=== PATIENT | female | born 1945 | race Caucasian/White ===

== ENCOUNTER → 2017-12-29 13:56 | Outpatient (CLI) | payer OTHER, SELFPAY ==
[2017-12-29 14:53] VITALS: BMI 34.6
== END ==
PROVIDERS: PCP Physician Assistant; Visit Provider Physician Assistant
DX: E66.9 Obesity, unspecified (principal); Z68.34 Body mass index [BMI] 34.0-34.9, adult
CPT/HCPCS: 97802

== ENCOUNTER 2018-01-02 12:56 | Emergency (ER) | payer OTHER, SELFPAY ==
[2018-01-02 13:03] VITALS: BP 157/88; PULSE 77; RESP 13; TEMP 37.3; O2SAT 99
--- NOTE | 2018-01-02 13:32 | DI.CT.S_ITS ---
PROCEDURE: CT ABDOMEN PELVIS W CON INDICATIONS: Left lower quadrant pain TECHNIQUE: After the administration of intravenous contrast, 5 mm thick sections acquired from the diaphragm to the symphysis. 5 mm coronal and sagittal reformats were acquired. For radiation dose reduction, the following was used: automated exposure control, adjustment of mA and/or kV according to patient size. COMPARISON: None. FINDINGS: Image quality: Excellent. ABDOMEN: Lung bases: Lung bases are clear. Heart size is normal. Solid organs: Liver is normal in size and enhancement. Gallbladder is within normal limits. Biliary system is non dilated. Pancreas enhances normally. Spleen is normal in size and enhancement. No adrenal nodules. K 3 mm diameter nonobstructing calcification within the left superior pole kidney with overlying scarring is present. idneys demonstrate otherwise normal size and enhancement, without hydronephrosis. Peritoneum and bowel: A small hiatal hernia is present. Stomach and small bowel are grossly unremarkable. Appendix is normal. Colon is nondistended. Diverticulosis of the descending and sigmoid colon is present. There is moderate thickening of the proximal sigmoid colon, which demonstrates moderate surrounding fat stranding. No pericolonic abscess. No free fluid or air. Nodes and vessels: No retroperitoneal or mesenteric adenopathy by size criteria. Aorta and inferior vena cava are normal in size. Miscellaneous: No ventral hernias. PELVIS: Genitourinary: Bladder wall thickness is normal. Miscellaneous: No inguinal hernias or adenopathy. Bones: No suspicious bony lesions. No vertebral body compression fractures. IMPRESSION: 1. Diverticulitis of the proximal sigmoid colon. No evidence of pericolonic abscess. 2. Left superior pole renal scarring with underlying calcification. Dictated by: Anjum Akhtar M.D. on 01/02/2018 at 15:01 Approved by: Anjum Akhtar M.D. on 01/02/2018 at 15:04
[2018-01-02 14:00] LABS: Add Manual Diff / Slide Review NO; Basophils Percent Auto 0.8 % (0-2); Eosinophils Percent Auto 1.7 % (2-4); Hematocrit 40.1 % (36-46); Hemoglobin 13.9 g/dL (12.0-16.0); Lymphocytes Percent Auto 14.7 % (25-40); Mean Corpuscular HGB Conc 34.7 % (30-36); Mean Corpuscular Hemoglobin 31.4 PG (26-34); Mean Corpuscular Volume 90.5 fL (80-100); Monocytes Percent Auto 7.2 % (3-14); Neutrophils Absolute Auto 7900 /uL (3000-5900); Neutrophils Percent Auto 75.6 % (50-75); Platelet Count 210 X10^3/uL (150-400); Red Blood Cell Count 4.43 X10^6/uL (4.0-5.2); Red Cell Distribution Width 13.4 % (11.6-14.8); White Blood Cell Count 10.5 X10^3/uL (4.5-11.0)
[2018-01-02 14:11] LABS: Alanine Aminotransferase 26 IU/L (9-52); Albumin 4.4 g/dL (3.5-5.0); Albumin Globulin Ratio 1.3 (1.0-2.8); Alkaline Phosphatase 80 U/L (38-126); Aspartate Aminotransferase 29 IU/L (14-36); BUN Creatinine Ratio 16.3 (6-22); Bilirubin Total 0.5 mg/dL (0.2-1.3); Calcium 9.4 mg/dL (8.4-10.2); Estimated Glomerular Filt Rate > 60.0 mL/min (>60); Globulin 3.3 g/dL (1.7-4.1); Glucose 95 mg/dL (80-110); Lipase 130 U/L (23-300); Potassium 5.2 mmol/L (3.4-5.1); Sodium 135 mmol/L (137-145); Total Protein 7.7 g/dL (6.3-8.2)
[2018-01-02 14:16] LABS: HEMOLYSIS 72 (0-50)
--- NOTE | 2018-01-02 15:37 | ED_ITS ---
HPI - Abdominal Pain <NEGRO Carrington - Last Filed: 01/02/18 22:04> General Chief Complaint: Abdominal Pain Stated Complaint: PT STATES LT LOWER AB PAIN Time Seen by Provider: 01/02/18 13:20 History of Present Illness HPI narrative: 72year-old female here for complaint of pain into her left lower quadrant that started last night at approximately midnight. She denies having any fevers or chills. She denies any urinary symptoms such as dysuria or urinary frequency. No flank pain. No fevers no chills. Last bowel movement was earlier today and was normal. She reports no nausea or vomiting. Last meal was this morning. She denies any trauma to the area. She reports increased pain with palpation to the area. MD complaint: abdominal pain Related Data Home Medications Medication Instructions Recorded Confirmed [VITAMIN C] 1,000 mg PO QDAY #0 11/12/17 01/05/18 aspirin 81 mg PO QDAY #0 11/12/17 01/05/18 melatonin 5 mg PO HSP PRN #0 11/12/17 01/05/18 omega-3 fatty acids 1,000 mg 1,000 mg PO DAILY 01/05/18 01/05/18 capsule Previous Rx's Medication Instructions Recorded levothyroxine 88 mcg PO QDAY #90 tab 11/12/17 pravastatin 20 mg PO HS #90 tab 11/12/17 varicella-zoster gE-AS01B (PF) 0.5 ml IM X1 #1 ea 11/12/17 [Shingrix (PF)] metronidazole 500 mg PO TID #21 tab 01/02/18 oxycodone-acetaminophen [Percocet] 1 tab PO Q4-6H PRN #10 tab 01/02/18 amoxicillin 500 mg capsule 500 mg PO BID #20 cap 01/05/18 amoxicillin 875 mg-potassium 1 tab PO BID #20 tab 01/08/18 clavulanate 125 mg tablet Allergies Allergy/AdvReac Type Severity Reaction Status Date / Time hydrocodone [From VICODIN] Allergy Mild NAUSEA Unverified 01/05/18 11:34 Sulfa (Sulfonamide AdvReac Intermediate Diarrhea Unverified 01/05/18 11:34 Antibiotics) [SULFA (SULFONAMIDE ANTIBIOTICS)] ciprofloxacin AdvReac Tendon Verified 01/05/18 11:34 pain, can't walk. Review of Systems <NEGRO Carrington - Last Filed: 01/02/18 22:04> Constitutional Denies chills, Denies fever(s), Denies lethargy and Denies weakness Eyes Denies change in vision, Denies eye discharge, Denies irritation and Denies loss of vision Cardiovascular Denies chest pain, Denies irregular heart rhythm, Denies lightheadedness, Denies palpitations, Denies dyspnea, Denies dyspnea on exertion and Denies orthopnea Respiratory Denies cough, Denies dyspnea, Denies dyspnea on exertion and Denies wheezing Gastrointestinal Gastrointestinal: Reports abdominal pain Genitourinary Denies hematuria, Denies flank pain, Denies urinary incontinence and Denies urinary urgency Musculoskeletal Denies back pain, Denies muscle weakness, Denies numbness and Denies tingling Integumentary/Breasts Denies pruritus, Denies erythema, Denies rash and Denies wounds Neurologic Denies loss of vision, Denies numbness, Denies tingling and Denies weakness Endocrine Denies palpitations Allergic/Immunologic Denies wheezing Exam <NEGRO Carrington - Last Filed: 01/02/18 22:04> Initial Vital Signs Initial Vital Signs: Vital Signs Temperature 99.1 F 01/02/18 13:03 Pulse Rate 77 01/02/18 13:03 Respiratory Rate 13 01/02/18 13:03 Blood Pressure 157/88 H 01/02/18 13:03 Pulse Oximetry 99 01/02/18 13:03 Const General: cooperative and well developed Nutritional Appearance: well nourished Orientation: alert, awake, oriented x3 and not confused [facility] Mouth: oral mucosae normal and moist mucous membranes Eyes Sclera: sclerae normal Pupils: PERRL EOM: EOM intact bilaterally Resp Effort & Inspection: normal respiratory effort, able to speak in complete sentences, no respiratory distress and no use of accessory muscles Auscultation: clear to auscultation bilaterally, no rales, no rhonchi and no wheezes Cardio Rate: regular rate Rhythm: regular rhythm Heart Sounds: S1 normal, S2 normal, no gallops, no murmurs and no rubs GI Palpation: soft, guarding, No hepatomegaly, No hernia, No mass, No pulsatile mass and tender (Under to left lower quadrant) Auscultation: normal bowel sounds General: No CVA tenderness Skin General: no rashes or lesions noted, No jaundice and No petechiae <Gama López DO - Last Filed: 01/21/18 07:29> Initial Vital Signs Initial Vital Signs: Vital Signs Temperature 99.1 F 01/02/18 13:03 Pulse Rate 77 01/02/18 13:03 Respiratory Rate 13 01/02/18 13:03 Blood Pressure 157/88 H 01/02/18 13:03 Pulse Oximetry 99 01/02/18 13:03 Course <NEGRO Carrington - Last Filed: 01/02/18 22:04> Orders Ordered: Discontinued Medications Sodium Chloride (Normal Saline 0.9%) 1,000 mls @ 150 mls/hr IV CONT SHRUTI Vital Signs - 8 hr 01/02/18 16:04 01/02/18 16:09 Pulse Rate 75 75 Respiratory Rate 16 18 Blood Pressure 150/73 H Blood Pressure [Left Arm] 150/73 H Pulse Oximetry 100 98 <Gama López DO - Last Filed: 01/21/18 07:29> Orders Ordered: Discontinued Medications Sodium Chloride (Normal Saline 0.9%) 1,000 mls @ 150 mls/hr IV CONT SHRUTI Vital Signs - 8 hr 01/02/18 16:04 01/02/18 16:09 Pulse Rate 75 75 Respiratory Rate 16 18 Blood Pressure 150/73 H Blood Pressure [Left Arm] 150/73 H Pulse Oximetry 100 98 MDM - Abdominal Pain <NEGRO Carrington - Last Filed: 01/02/18 22:04> Lab Data Result diagrams: 01/02/18 13:43 01/02/18 13:43 Lab Results 01/02/18 01/02/18 Range/Units 13:43 13:43 WBC 10.5 (4.5-11.0) X10^3/uL RBC 4.43 (4.0-5.2) X10^6/uL Hgb 13.9 (12.0-16.0) g/dL Hct 40.1 (36-46) % MCV 90.5 (80-100) fL MCH 31.4 (26-34) PG MCHC 34.7 (30-36) % RDW 13.4 (11.6-14.8) % Plt Count 210 (150-400) X10^3/uL Neut % (Auto) 75.6 H (50-75) % Lymph % (Auto) 14.7 L (25-40) % [place] % (Auto) 7.2 (3-14) % Eos % (Auto) 1.7 L (2-4) % Baso % (Auto) 0.8 (0-2) % Neut # (Auto) 7900 H (0233-4746) /uL Sodium 135 L (137-145) mmol/L Potassium 5.2 H (3.4-5.1) mmol/L Chloride 100.0 (98-107) mmol/L Carbon Dioxide 24.0 (22-32) mmol/L BUN 13.0 (7-17) mg/dL Creatinine 0.80 (0.52-1.04) mg/dL Estimated GFR > 60.0 (>60) mL/min BUN/Creatinine Ratio 16.3 (6-22) Glucose 95 (80-110) mg/dL Calcium 9.4 (8.4-10.2) mg/dL Total Bilirubin 0.5 (0.2-1.3) mg/dL AST 29 (14-36) IU/L ALT 26 (9-52) IU/L Alkaline Phosphatase 80 (38-126) U/L Total Protein 7.7 (6.3-8.2) g/dL Albumin 4.4 (3.5-5.0) g/dL Globulin 3.3 (1.7-4.1) g/dL Albumin/Globulin Ratio 1.3 (1.0-2.8) Lipase 130 (23-300) U/L Imaging Data CT scan - abdomen: Radiologist's impression: PROCEDURE: CT ABDOMEN PELVIS W CON INDICATIONS: Left lower quadrant pain TECHNIQUE: After the administration of intravenous contrast, 5 mm thick sections acquired from the diaphragm to the symphysis. 5 mm coronal and sagittal reformats were acquired. For radiation dose reduction, the following was used: automated exposure control, adjustment of mA and/or kV according to patient size. COMPARISON: None. FINDINGS: Image quality: Excellent. ABDOMEN: Lung bases: Lung bases are clear. Heart size is normal. Solid organs: Liver is normal in size and enhancement. Gallbladder is within normal limits. Biliary system is non dilated. Pancreas enhances normally. Spleen is normal in size and enhancement. No adrenal nodules. K 3 mm diameter nonobstructing calcification within the left superior pole kidney with overlying scarring is present. idneys demonstrate otherwise normal size and enhancement, without hydronephrosis. Peritoneum and bowel: A small hiatal hernia is present. Stomach and small bowel are grossly unremarkable. Appendix is normal. Colon is nondistended. Diverticulosis of the descending and sigmoid colon is present. There is moderate thickening of the proximal sigmoid colon, which demonstrates moderate surrounding fat stranding. No pericolonic abscess. No free fluid or air. Nodes and vessels: No retroperitoneal or mesenteric adenopathy by size criteria. Aorta and inferior vena cava are normal in size. Miscellaneous: No ventral hernias. PELVIS: Genitourinary: Bladder wall thickness is normal. Miscellaneous: No inguinal hernias or adenopathy. Bones: No suspicious bony lesions. No vertebral body compression fractures. IMPRESSION: 1. Diverticulitis of the proximal sigmoid colon. No evidence of pericolonic abscess. 2. Left superior pole renal scarring with underlying calcification. Dictated by: Anjum Akhtar M.D. on 01/02/2018 at 15:01 Approved by: Anjum Akhtar M.D. on 01/02/2018 at 15:04 [facility] Narrative Medical decision making narrative: Cbc, Chem panel and lipase were obtained were unremarkable. CT of the abdomen shows diverticulitis of the sigmoid colon. She is placed on ciprofloxacin and metronidazole. Maljamar is prescribed for discomfort. Slowly advance diet as tolerated. Follow up with primary care provider in the next couple of days. Return emergency room for any worsening symptoms. <Gama López, DO - Last Filed: 01/21/18 07:29> Lab Data Lab Results 01/02/18 01/02/18 Range/Units 13:43 13:43 WBC 10.5 (4.5-11.0) X10^3/uL RBC 4.43 (4.0-5.2) X10^6/uL Hgb 13.9 (12.0-16.0) g/dL Hct 40.1 (36-46) % MCV 90.5 (80-100) fL MCH 31.4 (26-34) PG MCHC 34.7 (30-36) % RDW 13.4 (11.6-14.8) % Plt Count 210 (150-400) X10^3/uL Neut % (Auto) 75.6 H (50-75) % Lymph % (Auto) 14.7 L (25-40) % [place] % (Auto) 7.2 (3-14) % Eos % (Auto) 1.7 L (2-4) % Baso % (Auto) 0.8 (0-2) % Neut # (Auto) 7900 H (7715-9263) /uL Sodium 135 L (137-145) mmol/L Potassium 5.2 H (3.4-5.1) mmol/L Chloride 100.0 (98-107) mmol/L Carbon Dioxide 24.0 (22-32) mmol/L BUN 13.0 (7-17) mg/dL Creatinine 0.80 (0.52-1.04) mg/dL Estimated GFR > 60.0 (>60) mL/min BUN/Creatinine Ratio 16.3 (6-22) Glucose 95 (80-110) mg/dL Calcium 9.4 (8.4-10.2) mg/dL Total Bilirubin 0.5 (0.2-1.3) mg/dL AST 29 (14-36) IU/L ALT 26 (9-52) IU/L Alkaline Phosphatase 80 (38-126) U/L Total Protein 7.7 (6.3-8.2) g/dL Albumin 4.4 (3.5-5.0) g/dL Globulin 3.3 (1.7-4.1) g/dL Albumin/Globulin Ratio 1.3 (1.0-2.8) Lipase 130 (23-300) U/L Discharge Plan Departure Patient Disposition: Home, Self-Care Clinical Impression: Diverticulitis Discharge Date/Time: 01/02/18 16:09 Interventions: ED Discharge Assessment Last Done: 01/02/18 16:09 Instructions: Diverticulitis Activity Restrictions/Additional Instructions: Laboratory results today were unremarkable. CT of the abdomen shows diverticulitis of the sigmoid colon. You have been placed on antibiotics use as directed. Maljamar for discomfort also use as directed. Follow up with the primary care provider in the next couple of days for re-evaluation. Slowly advance diet as tolerated. For any worsening symptoms return to the emergency room. Prescriptions: New metronidazole 500 mg tablet 500 mg PO TID Qty: 21 RF: 0 oxycodone-acetaminophen [Percocet] 5-325 mg tablet 1 tab PO Q4-6H PRN (Reason: pain) Qty: 10 RF: 0 No Action omega-3 fatty acids 1,000 mg capsule 1,000 mg PO DAILY RF: 0 amoxicillin 500 mg capsule 500 mg PO BID Qty: 20 RF: 0 [VITAMIN C] 1,000 mg PO QDAY Qty: 0 RF: 0 aspirin 81 MG tablet,delayed release (DR/EC) 81 mg PO QDAY Qty: 0 RF: 0 melatonin 5 MG tablet 5 mg PO HSP PRNQty: 0 RF: 0 varicella-zoster gE-AS01B (PF) [Shingrix (PF)] 50 MCG/0.5 ML suspension for reconstitution 0.5 ml IM X1 Qty: 1 RF: 1 levothyroxine 88 MCG tablet 88 mcg PO QDAY Qty: 90 RF: 3 pravastatin 20 MG tablet 20 mg PO HS Qty: 90 RF: 3 amoxicillin-pot clavulanate [Augmentin] 875-125 mg tablet 1 tab PO BID Qty: 20 RF: 0 Referrals: Shanda Ling PA-C [Primary Care Provider] - <Gama López DO - Last Filed: 01/21/18 07:29> Cosign ED Attending Cosignature Attestation: I was immediately available in the department for consultation. This documentation has been reviewed and I agree with assessment and plan. Supervised by Gama López DO
[2018-01-02 16:04] VITALS: BP 150/73; PULSE 75; RESP 16; O2SAT 100
[2018-01-02 16:09] VITALS: BP 150/73; PULSE 75; RESP 18; O2SAT 98
== END 2018-01-02 16:09 | disposition home or self-care (01) ==
PROVIDERS: Emergency Provider Nurse Practitioner Family; PCP Physician Assistant
DX: K57.92 Diverticulitis of intestine, part unspecified, without perforation or abscess without bleeding (principal)
CPT/HCPCS: 36591; 74177; 80053; 81003; 83690; 85025; 99282; 99284; Q9967

== ENCOUNTER → 2018-08-23 11:44 | Outpatient (CLI) | payer OTHER, SELFPAY ==
--- NOTE | 2018-08-23 | DI.MG.S_ITS ---
BILATERAL DIGITAL SCREENING MAMMOGRAM 3D/2D WITH CAD: 08/23/2018 CLINICAL: Routine screening. Family history of breast cancer. Comparison is made to exams dated: 06/04/2017 mammogram, 06/03/2016 mammogram, and 05/10/2015 mammogram - [facility]. There are scattered fibroglandular elements in both breasts. Current study was also evaluated with a Computer Aided Detection (CAD) system. No significant masses, calcifications, or other findings are seen in either breast. There has been no significant interval change. IMPRESSION: NEGATIVE There is no mammographic evidence of malignancy. A 1 year screening mammogram is recommended. This exam was interpreted at Station ID: [id number]. NOTE: For mammograms, a report in lay terms will be sent to the patient. Approximately 15% of breast malignancies will not be visualized mammographically. In the management of a palpable breast mass, a negative mammogram must not discourage biopsy of a clinically suspicious lesion. Electronically Signed By: Florin saldana/griselda:08/23/2018 16:15:41 letter sent: Normal Exam ACR BI-RADS Category 1: Negative [id number]
== END ==
PROVIDERS: PCP Physician Assistant; Visit Provider Physician Assistant
DX: Z12.31 Encounter for screening mammogram for malignant neoplasm of breast (principal); Z80.3 Family history of malignant neoplasm of breast
CPT/HCPCS: 77063; 77067

== ENCOUNTER → 2018-11-24 08:31 | Outpatient (CLI) | payer OTHER, SELFPAY ==
[2018-11-24 10:15] LABS: Alanine Aminotransferase 29 IU/L (9-52); Albumin 4.4 g/dL (3.5-5.0); Albumin Globulin Ratio 1.4 (1.0-2.8); Alkaline Phosphatase 75 U/L (38-126); Aspartate Aminotransferase 27 IU/L (14-36); BUN Creatinine Ratio 15.6 (6-22); Bilirubin Total 0.4 mg/dL (0.2-1.3); Blood Urea Nitrogen 14 mg/dL (7-17); Calcium 9.6 mg/dL (8.4-10.2); Carbon Dioxide 28 mmol/L (22-32); Chloride 99 mmol/L (98-107); Cholesterol 220 mg/dL (140-199); Estimated Glomerular Filt Rate > 60.0 mL/min (>60); Globulin 3.1 g/dL (1.7-4.1); Glucose 110 mg/dL (80-110); HDL Cholesterol 38 mg/dL (40-60); HEMOLYSIS 16 (0-50); LDL Cholesterol Calculated 136 mg/dL (<100); Potassium 4.5 mmol/L (3.4-5.1); Sodium 136 mmol/L (137-145); Total Protein 7.5 g/dL (6.3-8.2); Triglycerides 229 mg/dL (35-150)
[2018-11-24 11:17] LABS: Thyroid Stimulating Hormone 4.65 uIU/mL (0.47-4.68)
== END ==
PROVIDERS: PCP Physician Assistant; Visit Provider Physician Assistant
DX: E03.9 Hypothyroidism, unspecified (principal); E78.5 Hyperlipidemia, unspecified
CPT/HCPCS: 36415; 80053; 80061; 84443

== ENCOUNTER 2018-12-27 11:15 | Emergency (ER) | payer OTHER, SELFPAY ==
[2018-12-27 11:22] VITALS: BMI 33.3
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
[2018-12-27 11:29] VITALS: BP 153/72; PULSE 60; RESP 18; TEMP 37.7; O2SAT 98
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
[2018-12-27] MEDS: KETOROLAC 60 MG/2 ML VIAL IM (11:39)
[2018-12-27 13:33] VITALS: BP 141/64; PULSE 60; RESP 14; O2SAT 98
== END 2018-12-27 13:34 | disposition home or self-care (01) ==
PROVIDERS: Emergency Provider Emergency Medicine; PCP Physician Assistant
DX: S32.010A Wedge compression fracture of first lumbar vertebra, initial encounter for closed fracture (principal); V86.69XA Passenger of other special all-terrain or other off-road motor vehicle injured in nontraffic accident, initial encounter
CPT/HCPCS: 72100; 96372; 99282; 99283; J1885

== ENCOUNTER → 2019-01-25 08:31 | Outpatient (CLI) | payer OTHER, SELFPAY ==
[2019-01-25 09:01] LABS: Cholesterol 197 mg/dL (140-199); HDL Cholesterol 45 mg/dL (40-60); LDL Cholesterol Calculated 98 mg/dL (<100); Triglycerides 269 mg/dL (35-150)
[2019-01-25 09:50] LABS: Vitamin D 25 Hydroxy (D3) 25.8 ng/mL (30.0-100.0)
== END ==
PROVIDERS: PCP Physician Assistant; Visit Provider Physician Assistant
DX: E78.5 Hyperlipidemia, unspecified (principal); S32.010A Wedge compression fracture of first lumbar vertebra, initial encounter for closed fracture
CPT/HCPCS: 36415; 80061; 82306

== ENCOUNTER 2019-06-17 14:57 | Emergency (ER) | payer OTHER, SELFPAY ==
[2019-06-17 15:00] VITALS: BP 144/80; PULSE 86; RESP 16; TEMP 36.7; O2SAT 98; BMI 34.1
[2019-06-17 15:42] LABS: Add Manual Diff / Slide Review NO; Basophils Absolute Auto 100 /uL (0-100); Basophils Percent Auto 1.3 % (0-2); Eosinophils Absolute Auto 300 /uL (0-450); Eosinophils Percent Auto 4.2 % (2-4); Hematocrit 42.4 % (36-46); Hemoglobin 14.4 g/dL (12.0-16.0); Lymphocytes Absolute Auto 1600 /uL (1100-4500); Mean Corpuscular HGB Conc 33.8 % (30-36); Mean Corpuscular Hemoglobin 30.9 PG (26-34); Mean Corpuscular Volume 91.3 fL (80-100); Monocytes Absolute Auto 700 /uL (0-900); Neutrophils Absolute Auto 4000 /uL (1500-7000); Neutrophils Percent Auto 60.5 % (50-75); Platelet Count 180 X10^3/uL (150-400); Red Blood Cell Count 4.65 X10^6/uL (4.0-5.2); Red Cell Distribution Width 13.1 % (11.6-14.8); White Blood Cell Count 6.7 X10^3/uL (4.5-11.0)
[2019-06-17 15:48] LABS: INR 0.9 (0.9-1.3); Prothrombin Time 10.8 SECONDS (10.1-12.7)
[2019-06-17 15:50] LABS: PTT Partial Thromboplastin Tim 31 SECONDS (26.4-36.2)
[2019-06-17 15:53] LABS: Alanine Aminotransferase 17 IU/L (<35); Albumin 4.3 g/dL (3.5-5.0); Albumin Globulin Ratio 1.5 (1.0-2.8); Alkaline Phosphatase 78 U/L (38-126); Aspartate Aminotransferase 24 IU/L (14-36); BUN Creatinine Ratio 15.6 (6-22); Bilirubin Total 0.3 mg/dL (0.2-1.3); Blood Urea Nitrogen 14 mg/dL (7-17); Calcium 9.4 mg/dL (8.4-10.2); Carbon Dioxide 28 mmol/L (22-32); Chloride 102 mmol/L (98-107); Estimated Glomerular Filt Rate > 60.0 mL/min (>60); Globulin 2.8 g/dL (1.7-4.1); Glucose 107 mg/dL (80-110); HEMOLYSIS < 15 (0-50); Potassium 4.4 mmol/L (3.4-5.1); Sodium 137 mmol/L (137-145); Total Protein 7.1 g/dL (6.3-8.2)
--- NOTE | 2019-06-17 15:56 | PC.NURSE ---
Pt arrived POV reporting she went to [facility] for rectal bleeding and was referred to ED. reports she has had 2 weeks of bright red blood on tissue paper and in bowl when having BM. h/o hemorrhoids. appears well. in good color. AAOx3. reports stools are formed. no trouble urinating. abd SNT. lungs clear. IV placed and labs drawn including T&S. RT in room for EKG. awaiting MD assessment.
--- NOTE | 2019-06-17 16:40 | DI.CT.S_ITS ---
PROCEDURE: CT ABDOMEN PELVIS W CON INDICATIONS: rectal bleed for 2 wks, hx of diverticulitis TECHNIQUE: After the administration of intravenous contrast, 5 mm thick sections acquired from the diaphragm to the symphysis. 5 mm coronal and sagittal reformats were acquired. For radiation dose reduction, the following was used: automated exposure control, adjustment of mA and/or kV according to patient size. COMPARISON: [facility], CT, CT ABDOMEN PELVIS W CON, 01/02/2018, 14:17. FINDINGS: Image quality: Excellent. ABDOMEN: Lung bases: Lung bases are clear. Heart size is normal. Trace hiatal hernia Solid organs: Liver is normal in size and enhancement. Gallbladder unremarkable. Biliary system is non dilated. Pancreas enhances normally. Spleen is normal in size and enhancement. No adrenal nodules. Kidneys demonstrate normal size and enhancement, without hydronephrosis. Possible dystrophic calcification, less likely nonobstructive nephrolithiasis in left kidney on image 32 series 2 measuring 1 mm Peritoneum and bowel: Bowel loops demonstrate normal wall thickness and caliber. No free fluid or air. The appendix is within normal limits Colonic diverticulosis is seen without evidence of acute complication. Rectum is grossly unremarkable Nodes and vessels: No retroperitoneal or mesenteric adenopathy by size criteria. Aorta and inferior vena cava are normal in size. Miscellaneous: No ventral hernias. PELVIS: Genitourinary: Bladder wall thickness is normal. Miscellaneous: No inguinal hernias or adenopathy. Bones: No suspicious bony lesions. L1 compression fracture with mild height loss which is new since 01/02/18 however no more recent comparison studies. Diffuse spondylosis. IMPRESSION: Overall, no acute process. No evidence of acute diverticulitis. Normal appendix Trace hiatal hernia L1 compression fracture with mild height loss, age indeterminate although new since 01/02/18. Additional chronic and incidental findings as above. Dictated by: Chris Dugan M.D. on 06/17/2019 at 17:03 Approved by: Chris Dugan M.D. on 06/17/2019 at 17:10
--- NOTE | 2019-06-17 17:01 | ED_ITS ---
HPI - GI Bleed <NEGRO Gomez - Last Filed: 06/18/19 00:40> General Chief complaint: GI Bleed Stated complaint: rectal bleeding Time Seen by Provider: 06/17/19 16:11 Source: patient Mode of arrival: Ambulatory Limitations: no limitations History of Present Illness HPI Narrative: This is a 73 year female, nonsmoker, who presents with her spouse with chief complain of bright red rectal bleeding which started 2 weeks ago. Patient has history of hemorrhoids, diverticulitis and states the pain is different from her diverticulitis pain. Patient usually have every other day bowel movements with formed or hard stools. Patient reports left lower quadrant pain. Patient had headaches which started 4 days ago for 2 days which now resolved and states feeling spacey. Patient denies chest pain, breathing difficulty, nausea or vomiting. Patient has not been hydrated well due to lack of feeling thirst. Patient reports her rectum has intermittent pressure and discomfort. Patient denies urinary symptoms. [facility] and was referred to emergency room for evaluation. Patient has routine colonoscopy for history of polyps but is not able to recall the last procedure. Related Data Home Medications Medication Instructions Recorded Confirmed omega-3 fatty acids 1,000 mg 1,000 mg PO DAILY 01/05/18 06/17/19 capsule Probiotic 2 cap PO DAILY 03/08/18 06/17/19 Glucosamine 2 tab PO DAILY 12/27/18 06/17/19 ibuprofen 200 mg tablet 600 mg PO Q4-6H PRN tab 01/24/19 06/17/19 melatonin 5 mg tablet 5 mg PO BEDTIME PRN 01/24/19 06/17/19 Testosterone 2% Cream 0.5 - 1 ml TOPICAL DAILY 06/17/19 06/17/19 Previous Rx's Medication Instructions Recorded levothyroxine 88 mcg tablet 88 mcg PO DAILY #90 tab 01/19/19 varicella-zoster [id number] (PF) 50 50 mcg IM ONCE #1 each 01/24/19 mcg/0.5 mL IM susp, kit Estradiol Cream 0.2% 0.5 gram VAGINAL 2XW #30 gram 02/04/19 pravastatin 40 mg tablet 40 mg PO QPM #90 tab 03/14/19 Allergies Allergy/AdvReac Type Severity Reaction Status Date / Time hydrocodone [From VICODIN] Allergy Mild NAUSEA Verified 06/17/19 15:00 ciprofloxacin AdvReac Severe Tendon Verified 06/17/19 15:00 pain, can't walk. Sulfa (Sulfonamide AdvReac Intermediate Diarrhea Verified 06/17/19 15:00 Antibiotics) [SULFA (SULFONAMIDE ANTIBIOTICS)] Review of Systems <ENGRO Gomez - Last Filed: 06/18/19 00:40> Review of Systems Narrative: General: Denies fever, chills, fatigue, malaise, sweats. HEENT: Denies sinus pain, ear pain, sore throat, difficulty swallowing, dizziness. Respiratory: Denies dyspnea, cough, wheezing, hemoptysis, sputum. Cardiovascular: Denies chest pain, palpitations, orthopnea, edema. Gastrointestinal: See HPI : Denies dysuria, frequency, incontinence, hematuria, urinary retention. Musculoskeletal: Denies weakness, joint pain or bony pain. Skin: Denies rash, skin lesions, or other. Neurologic: Resolved headache 3 days ago. Denies weakness, numbness, change in speech, confusion, seizures, incoordination. Psychiatric: No concerning psychosocial issues. 12-point review of systems is negative except for those stated above. Patient History <NEGRO Gomez - Last Filed: 06/18/19 00:40> Medical History Cataract (Resolved ~01/2011) Colon polyps (Resolved Unknown) Diverticulitis (Acute) Hemorrhoids (Acute) Hyperlipidemia (Chronic ~01/2011) Hypothyroidism (Chronic ~01/2011) Mild obstructive sleep apnea (Chronic ~01/2017) Surgical History History of knee replacement Status post hernia repair Status post hysterectomy Family History Sister History of breast cancer Sister Type 1 diabetes mellitus without complications OCD (obsessive compulsive disorder) Social History Smoking Status: Never smoker second hand exposure: No alcohol intake: never substance use type: does not use alcohol intake frequency: holidays/special occasions only Substance Use Type: does not use Exam <NEGRO Gomez - Last Filed: 06/18/19 00:40> Narrative Exam Narrative: GEN: Alert, oriented x 3, well appearing and nourished, and in no acute distress. Head: Normal cephalic, atraumatic. No scalp or temporal tenderness, palpable mass or rash. EYES: Pupils are equal, round, and reactive to light and accommodation. Extraocular muscles are intact bilaterally. There is no subconjunctival hemorrhage, exudate and sclera non-icteric. ENT: Bilateral auditory canals and tympanic membranes clear. Hearing grossly intact. Nose without bleeding, purulent discharge or deviation. Facial sinuses nontender to palpate. Mucous membrane moist, no mucosal lesion. Throat without erythema, tonsillar hypertrophy or exudate. Uvula in midline, airway patent. Neck: Trachea in midline. No JVD, non-tender without lymphadenopathy. No masses or thyroid megaly. Supple, non-tender and no meningeal signs. CARDIAC: Normal regular rate and rhythm without murmurs, gallops, or rubs. No chest wall tenderness. No peripheral edema, cyanosis or pallor. Capillary refill is less than 2 seconds. RESPIRATORY: Lungs are clear to auscultate bilaterally. No cough, wheezes, rales, or rhonchi. No stridor, respiratory distress, increase work of breathing, or accessary muscle used. ABD: Bilateral lower abdominal tenderness to palpate. Abdomen soft and non- distended. No guarding or rebound tenderness to palpate. Bowel sounds are normal in all 4 quadrants. There is no palpable masses or organomegaly. EXT: Full painless ROM of all extremities with no loss of sensation, strength, effusion or edema. SKIN: Warm, dry, normal color for patient. No erythema, lesions or rash over visible areas. BACK: Nontender without deformity or crepitance. No flank tenderness. NEUROLOGICAL: Alert and oriented to place, time and person. Sensation and motor function intact bilaterally. No facial droops, dysphasia. PSYCHIATRIC: Good judgement and reason, without hallucinations, abnormal affect or abnormal behaviors during the examination. Patient is not suicidal. Initial Vital Signs Initial Vital Signs: Vital Signs Temperature 98.1 F 06/17/19 15:00 Pulse Rate 86 06/17/19 15:00 Respiratory Rate 16 06/17/19 15:00 Blood Pressure 144/80 H 06/17/19 15:00 Pulse Oximetry 98 06/17/19 15:00 GI Rectal Exam: normal sphincter tone, heme negative stool, hemorrhoids, No tenderness, visual inspection abnormal and other (External hemorrhoids in moderate size) <Lourdes Blakely DO - Last Filed: 06/18/19 07:35> Initial Vital Signs Initial Vital Signs: Vital Signs Temperature 98.1 F 06/17/19 15:00 Pulse Rate 86 06/17/19 15:00 Respiratory Rate 16 06/17/19 15:00 Blood Pressure 144/80 H 06/17/19 15:00 Pulse Oximetry 98 06/17/19 15:00 Procedures <NEGRO Gomez - Last Filed: 06/18/19 00:40> Stool Hemoccult Procedural Steps Taken: stool placed in appropriate test area, developer placed on stool and control areas and controls appropriately positive and negative Hemoccult result: negative Additional Comments: The patient tolerated well. Scores <NEGRO Gomez - Last Filed: 06/18/19 00:40> GCS Sandra coma scale eye opening: Spontaneous [place] coma scale verbal response: Orientated [place] coma scale motor response: Obey commands [place] coma scale total score: 15 Course <NEGRO Gomez - Last Filed: 06/18/19 00:40> Orders Ordered: Discontinued Medications Sodium Chloride (Normal Saline 0.9%) 1,000 mls @ 150 mls/hr IV CONT SHRUTI Last Admin: 06/17/19 18:00 Dose: Not Given Documented by: MERARI Vital Signs Vital signs: Vital Signs - 8 hr 06/17/19 18:01 Pulse Rate 80 Respiratory Rate 16 Blood Pressure 136/78 Pulse Oximetry 97 <Lourdes Blakely DO - Last Filed: 06/18/19 07:35> Orders Ordered: Discontinued Medications Sodium Chloride (Normal Saline 0.9%) 1,000 mls @ 150 mls/hr IV CONT SHRUTI Last Admin: 06/17/19 18:00 Dose: Not Given Documented by: MERARI Vital Signs Vital signs: Vital Signs - 8 hr 06/17/19 18:01 Pulse Rate 80 Respiratory Rate 16 Blood Pressure 136/78 Pulse Oximetry 97 MDM - GI Bleed <NEGRO Gomez - Last Filed: 06/18/19 00:40> Differential Diagnosis Differential diagnosis: Likely hemorrhoids, Lower gastrointestinal hemorrhage, hematochezia, anal fissure and other (Diverticulitis) Medical Records Attestation: I reviewed the patient's medical records. Lab Data Attestation: I reviewed the patient's lab results. Result diagrams: 06/17/19 15:30 06/17/19 15:30 Labs: Lab Results 06/17/19 06/17/19 06/17/19 Range/Units 15:30 15:30 15:30 WBC 6.7 (4.5-11.0) X10^3/uL RBC 4.65 (4.0-5.2) X10^6/uL Hgb 14.4 (12.0-16.0) g/dL Hct 42.4 (36-46) % MCV 91.3 (80-100) fL MCH 30.9 (26-34) PG MCHC 33.8 (30-36) % RDW 13.1 (11.6-14.8) % Plt Count 180 (150-400) X10^3/uL Neut % (Auto) 60.5 (50-75) % Lymph % (Auto) 24.0 L (25-40) % Glynn % (Auto) 10.0 (3-14) % Eos % (Auto) 4.2 H (2-4) % Baso % (Auto) 1.3 (0-2) % Neut # (Auto) 4000 (0656-6386) /uL Lymph # (Auto) 1600 (0805-7669) /uL Glynn # (Auto) 700 (0-900) /uL Eos # (Auto) 300 (0-450) /uL Baso # (Auto) 100 (0-100) /uL PT 10.8 (10.1-12.7) SECONDS INR 0.9 (0.9-1.3) APTT 31 (26.4-36.2) SECONDS Sodium 137 (137-145) mmol/L Potassium 4.4 (3.4-5.1) mmol/L Chloride 102 (98-107) mmol/L Carbon Dioxide 28 (22-32) mmol/L BUN 14 (7-17) mg/dL Creatinine 0.90 (0.52-1.04) mg/dL Estimated GFR > 60.0 (>60) mL/min BUN/Creatinine Ratio 15.6 (6-22) Glucose 107 (80-110) mg/dL Calcium 9.4 (8.4-10.2) mg/dL Total Bilirubin 0.3 (0.2-1.3) mg/dL AST 24 (14-36) IU/L ALT 17 (<35) IU/L Alkaline Phosphatase 78 (38-126) U/L Total Protein 7.1 (6.3-8.2) g/dL Albumin 4.3 (3.5-5.0) g/dL Globulin 2.8 (1.7-4.1) g/dL Albumin/Globulin Ratio 1.5 (1.0-2.8) Point of Care Testing Stool Occult Blood Negative Imaging Data CT scan - abdomen: Radiologist's impression: [address] [address] [address] Scan Report Signed Patient: Genesis Peter GMR#: [id number] : 7Acct:[id number] Age/Sex: 73 / FDate of Service: 06/17/19 Loc: ED Accession Number: [id number] Procedure: CT abdomen pelvis w con Ordering Provider: Roni Bruno PROCEDURE: CT ABDOMEN PELVIS W CON INDICATIONS: rectal bleed for 2 wks, hx of diverticulitis TECHNIQUE: After the administration of intravenous contrast, 5 mm thick sections acquired from the diaphragm to the symphysis. 5 mm coronal and sagittal reformats were acquired. For radiation dose reduction, the following was used: automated exposure control, adjustment of mA and/or kV according to patient size. COMPARISON: [facility], CT, CT ABDOMEN PELVIS W CON, 01/02/2018, 14:17. FINDINGS: Image quality: Excellent. ABDOMEN: Lung bases: Lung bases are clear. Heart size is normal. Trace hiatal hernia Solid organs: Liver is normal in size and enhancement. Gallbladder unremarkabl e. Biliary system is non dilated. Pancreas enhances normally. Spleen is normal in size and enhancement. No adrenal nodules. Kidneys demonstrate normal size and enhancement, without hydronephrosis. Possible dystrophic calcification, less likely nonobstructive nephrolithiasis in left kidney on image 32 series 2 measuring 1 mm Peritoneum and bowel: Bowel loops demonstrate normal wall thickness and caliber. No free fluid or air. The appendix is within normal limits Colonic diverticulosis is seen without evidence of acute complication. Rectum is grossly unremarkable Nodes and vessels: No retroperitoneal or mesenteric adenopathy by size criteria. Aorta and inferior vena cava are normal in size. Miscellaneous: No ventral hernias. PELVIS: Genitourinary: Bladder wall thickness is normal. Miscellaneous: No inguinal hernias or adenopathy. Bones: No suspicious bony lesions. L1 compression fracture with mild height loss which is new since 01/02/18 however no more recent comparison studies. Diffuse spondylosis. IMPRESSION: Overall, no acute process. No evidence of acute diverticulitis. Normal appendix Trace hiatal hernia L1 compression fracture with mild height loss, age indeterminate although new since 01/02/18. Additional chronic and incidental findings as above. Dictated by: Chris Dugan M.D. on 06/17/2019 at 17:03 Approved by: Chris Dugan M.D. on 06/17/2019 at 17:10 [facility] Narrative Medical decision making narrative: This is a 73-year-old female, history of diverticulitis, diverticulosis, colon polyps and hemorrhoids, who was referred to ED by VIJI Soto for on evaluation and treatment for non symptomatic bright red rectal bleeding and left lower quadrant discomfort. Patient denies constitutional symptoms. Onset was 2 weeks ago about 3 times a week when patient attempted to have bowel movements or straining. Reports usual bowel movement is about every other day and has formed or hard stools usually. Patient reports intermittent rectal discomfort and itchiness. Physical exam showed Mild Bilateral low abdominal discomfort to palpate without rebound tenderness with soft and nondistended abdomen. Patient denies urinary symptoms. H/H is stable with unremarkable electrolytes and coags. Patient has moderate size external hemorrhoids. Negative Hemoccult test. CT of abdomen/pelvis shows no acute diverticulitis, normal appendix with grossly unremarkable rectum. Findings were discussed with the patient and advised to follow up with primary care physician and possible referral to general surgery/GI specialist for colonoscopy if bleeding continues. Strict return precautions were discussed with the patient. Patient advised to incorporate flaxseeds, magnesium supplement, high fiber diet, and increase water intake to avoid hard stools. Patient verbalized understanding and agrees with the treatment plan. <Lourdes Blakely, - Last Filed: 06/18/19 07:35> Lab Data Labs: Lab Results 06/17/19 06/17/19 06/17/19 Range/Units 15:30 15:30 15:30 WBC 6.7 (4.5-11.0) X10^3/uL RBC 4.65 (4.0-5.2) X10^6/uL Hgb 14.4 (12.0-16.0) g/dL Hct 42.4 (36-46) % MCV 91.3 (80-100) fL MCH 30.9 (26-34) PG MCHC 33.8 (30-36) % RDW 13.1 (11.6-14.8) % Plt Count 180 (150-400) X10^3/uL Neut % (Auto) 60.5 (50-75) % Lymph % (Auto) 24.0 L (25-40) % Glynn % (Auto) 10.0 (3-14) % Eos % (Auto) 4.2 H (2-4) % Baso % (Auto) 1.3 (0-2) % Neut # (Auto) 4000 (7393-8091) /uL Lymph # (Auto) 1600 (6689-7637) /uL Glynn # (Auto) 700 (0-900) /uL Eos # (Auto) 300 (0-450) /uL Baso # (Auto) 100 (0-100) /uL PT 10.8 (10.1-12.7) SECONDS INR 0.9 (0.9-1.3) APTT 31 (26.4-36.2) SECONDS Sodium 137 (137-145) mmol/L Potassium 4.4 (3.4-5.1) mmol/L Chloride 102 (98-107) mmol/L Carbon Dioxide 28 (22-32) mmol/L BUN 14 (7-17) mg/dL Creatinine 0.90 (0.52-1.04) mg/dL Estimated GFR > 60.0 (>60) mL/min BUN/Creatinine Ratio 15.6 (6-22) Glucose 107 (80-110) mg/dL Calcium 9.4 (8.4-10.2) mg/dL Total Bilirubin 0.3 (0.2-1.3) mg/dL AST 24 (14-36) IU/L ALT 17 (<35) IU/L Alkaline Phosphatase 78 (38-126) U/L Total Protein 7.1 (6.3-8.2) g/dL Albumin 4.3 (3.5-5.0) g/dL Globulin 2.8 (1.7-4.1) g/dL Albumin/Globulin Ratio 1.5 (1.0-2.8) Point of Care Testing Stool Occult Blood Negative Discharge Plan Departure Patient Disposition: Home Clinical Impression: Bright red rectal bleeding Discharge Date/Time: 06/17/19 18:10 Instructions: DI for Rectal Bleeding Activity Restrictions/Additional Instructions: You have been diagnosed with [rectal bleeding likely from hemorrhoids. The blood count is good, chemistry is unremarkable, there was no blood per Hemoccul t. Abdominal CT test did not indicate diverticulitis, with normal appendix with unremarkable rectum]. What to do: *Take your medications as directed. Incorporate high-fiber diet and adequate hydration to prevent constipation. We talked about incorporating flexes and magnesium supplements for this. *Follow up with your primary care provider in 2-3 days, call for an appointment. Please discussed with MOY Ling about last colonoscopy and when is due if rectal bleeding continues. Let them know you were seen in the ED and that we asked you to be seen in follow up. *Return to ED if you have any new, worsening, or concerning symptoms, such as [fever, increasing abdominal pain, chest pain, breathing difficulty, increasing rectal bleeding, feeling lightheaded or fainting, or any acute concerns]. Prescriptions: No Action omega-3 fatty acids 1,000 mg capsule 1,000 mg PO DAILY RF: 0 Probiotic 2 cap PO DAILY RF: 0 levothyroxine 88 mcg tablet 88 mcg PO DAILY Qty: 90 RF: 3 Estradiol Cream 0.2% 0.5 gram vaginal 2XW Qty: 30 RF: 11 pravastatin 40 mg tablet 40 mg PO QPM Qty: 90 RF: 3 melatonin 5 mg tablet 5 mg PO BEDTIME PRN (Reason: Sleep) RF: 0 ibuprofen 200 mg tablet 600 mg PO Q4-6H PRN (Reason: pain) RF: 0 Shingrix (PF) 50 mcg/0.5 mL suspension for reconstitution 50 mcg IM ONCE Qty: 1 RF: 1 Testosterone 2% Cream 0.5 - 1 ml topical DAILY RF: 0 Glucosamine 2 tab PO DAILY RF: 0 Referrals: Shanda Ling PA-C [Primary Care Provider] -
[2019-06-17 18:01] VITALS: BP 136/78; PULSE 80; RESP 16; O2SAT 97
== END 2019-06-17 18:10 | disposition home or self-care (01) ==
PROVIDERS: Emergency Medicine; Emergency Provider Nurse Practitioner Family; Family Provider Physician Assistant; PCP Physician Assistant
DX: K62.5 Hemorrhage of anus and rectum (principal); R10.32 Left lower quadrant pain; Z87.19 Personal history of other diseases of the digestive system; Z86.010 Personal history of colon polyps
CPT/HCPCS: 36415; 74177; 80053; 82272; 85025; 85610; 85730; 93005; 93010; 99282; 99285; Q9967

== ENCOUNTER → 2019-08-08 10:52 | Outpatient (CLI) | payer OTHER, SELFPAY ==
[2019-08-08 12:12] LABS: Vitamin D 25 Hydroxy (D3) 53.5 ng/mL (30.0-100.0)
== END ==
PROVIDERS: PCP Physician Assistant; Visit Provider Physician Assistant
DX: E55.9 Vitamin D deficiency, unspecified (principal); S32.010A Wedge compression fracture of first lumbar vertebra, initial encounter for closed fracture
CPT/HCPCS: 36415; 82306

== ENCOUNTER → 2019-09-16 12:05 | Outpatient (CLI) | payer OTHER, SELFPAY ==
--- NOTE | 2019-09-16 | DI.MG.S_ITS ---
BILATERAL DIGITAL SCREENING MAMMOGRAM 3D/2D WITH CAD: 09/16/2019 CLINICAL: Routine screening. Family history of breast cancer. Comparison is made to exams dated: 08/23/2018 mammogram, 06/04/2017 mammogram, and 06/03/2016 mammogram - [facility]. There are scattered fibroglandular elements in both breasts. Current study was also evaluated with a Computer Aided Detection (CAD) system. There are benign calcifications in both breasts. No significant masses, calcifications, or other findings are seen in either breast. There has been no significant interval change. IMPRESSION: There is no mammographic evidence of malignancy. A 1 year screening mammogram is recommended. This exam was interpreted at Station ID: [id number]. NOTE: For mammograms, a report in lay terms will be sent to the patient. Approximately 15% of breast malignancies will not be visualized mammographically. In the management of a palpable breast mass, a negative mammogram must not discourage biopsy of a clinically suspicious lesion. Electronically Signed By: Florin saldana/griselda:09/16/2019 13:59:38 letter sent: Normal Exam ACR BI-RADS Category 2: Benign Finding(s) 3342F
[2019-09-16 19:18] LABS: Appearance Urine UA CLOUDY; Bilirubin Urine UA NEGATIVE (NEGATIVE); Color Urine UA YELLOW; Glucose Urine UA NEGATIVE (Negative); Ketones Urine UA NEGATIVE (NEGATIVE); Leukocyte Esterase Urine UA TRACE (NEGATIVE); Nitrite Urine UA NEGATIVE (Negative); Occult Blood Urine UA 3+ (Negative); Protein Urine UA NEGATIVE (Negative); Specific Gravity Urine UA <=1.005 (1.000-1.035); Urobilinogen Urine UA 0.2 E.U./dL (0.2)
[2019-09-16 19:28] LABS: Bacteria Urine Many (>30); Culture Indicated Urine Specimen Cultured; RBC Urine 1-5/HPF (0-5/HPF); Squamous Epithelial Cell Urine 0-1 /HPF (0-5/HPF); WBC Urine 5-10/HPF (0-5/HPF); pH Urine UA 6.5 (4.5-8.0)
== END ==
PROVIDERS: Nurse Practitioner Family; PCP Physician Assistant; Visit Provider Physician Assistant
DX: Z12.31 Encounter for screening mammogram for malignant neoplasm of breast (principal); Z80.3 Family history of malignant neoplasm of breast; R31.9 Hematuria, unspecified
CPT/HCPCS: 77063; 77067; 81001; 87077; 87086; 87186

== ENCOUNTER → 2019-10-25 14:37 | Outpatient (CLI) | payer OTHER, SELFPAY ==
--- NOTE | 2019-10-25 14:38 | DI.RAD.S_ITS ---
PROCEDURE: XR HIP W PEL IF DONE LT 2V INDICATIONS: left hip pain TECHNIQUE: AP pelvis with lateral view(s) of the left hip(s). COMPARISON: None. FINDINGS: Bones: No fractures or dislocations. Pelvic ring appears intact. No suspicious bony lesions. Mild bilateral hip joint degeneration Soft tissues: The visualized bowel gas pattern is normal. No suspicious soft tissue calcifications. IMPRESSION: Mild bilateral hip joint degeneration. Dictated by: Chris Dugan M.D. on 10/25/2019 at 15:27 Approved by: Chris Dugan M.D. on 10/25/2019 at 15:27
== END ==
PROVIDERS: PCP Nurse Practitioner Family; Referring Provider Nurse Practitioner Family; Visit Provider Nurse Practitioner Family
DX: M25.552 Pain in left hip (principal); M16.0 Bilateral primary osteoarthritis of hip
CPT/HCPCS: 73502

== ENCOUNTER → 2020-01-30 10:02 | Outpatient (CLI) | payer OTHER, SELFPAY ==
[2020-01-30 12:25] LABS: Alanine Aminotransferase 14 IU/L (<35); Albumin Globulin Ratio 1.4 (1.0-2.8); Alkaline Phosphatase 67 U/L (38-126); Aspartate Aminotransferase 25 IU/L (14-36); BUN Creatinine Ratio 16.9 (6-22); Bilirubin Total 0.5 mg/dL (0.2-1.3); Blood Urea Nitrogen 13 mg/dL (7-17); Calcium 8.9 mg/dL (8.4-10.2); Carbon Dioxide 24 mmol/L (22-32); Chloride 100 mmol/L (98-107); Cholesterol 165 mg/dL (140-199); Estimated Glomerular Filt Rate > 60.0 mL/min (>60); Globulin 2.9 g/dL (1.7-4.1); Glucose 96 mg/dL (80-110); HDL Cholesterol 35 mg/dL (40-60); HEMOLYSIS 22 (0-50); LDL Cholesterol Calculated 91 mg/dL (<100); Potassium 4.4 mmol/L (3.4-5.1); Sodium 131 mmol/L (137-145); Total Protein 6.9 g/dL (6.3-8.2); Triglycerides 194 mg/dL (35-150)
[2020-01-30 13:18] LABS: Thyroid Stimulating Hormone 1.26 uIU/mL (0.47-4.68)
== END ==
PROVIDERS: PCP Nurse Practitioner Family; Referring Provider Physician Assistant; Visit Provider Physician Assistant
DX: E03.9 Hypothyroidism, unspecified (principal); E78.5 Hyperlipidemia, unspecified
CPT/HCPCS: 36415; 80053; 80061; 84443

== ENCOUNTER 2020-03-12 20:08 | Emergency (ER) | payer OTHER, SELFPAY ==
[2020-03-12] VITALS (8 sets, daily range): BP systolic 170–181; BP diastolic 82–88; PULSE 79–94; RESP 22; TEMP 37.2; O2SAT 96–98
--- NOTE | 2020-03-12 20:16 | DI.RAD.S_ITS ---
PROCEDURE: XR CHEST 1V INDICATIONS: chest pain TECHNIQUE: One view of the chest was acquired. COMPARISON: [facility], , CHEST 2 VIEW, 05/29/2017, 18:54. FINDINGS: Surgical changes and devices: None. Lungs and pleura: Lungs are clear. No pleural effusions or pneumothorax. Mediastinum: Mediastinal contours appear normal. Heart size is normal. Bones and chest wall: No suspicious bony lesions. Overlying soft tissues appear unremarkable. IMPRESSION: No acute cardiopulmonary disease process. Dictated by: Alexandra Villalba MD, PhD on 03/12/2020 at 20:53 Approved by: Alexandra Villalba MD, PhD on 03/12/2020 at 20:54
[2020-03-12 20:47] LABS: Add Manual Diff / Slide Review NO; Basophils Absolute Auto 100 /uL (0-100); Basophils Percent Auto 1.2 % (0-2); Eosinophils Absolute Auto 200 /uL (0-450); Eosinophils Percent Auto 2.9 % (2-4); Hemoglobin 14.4 g/dL (12.0-16.0); Lymphocytes Absolute Auto 1800 /uL (1100-4500); Lymphocytes Percent Auto 26.7 % (25-40); Mean Corpuscular HGB Conc 34.2 % (30-36); Mean Corpuscular Hemoglobin 31.1 PG (26-34); Monocytes Absolute Auto 800 /uL (0-900); Monocytes Percent Auto 11.7 % (3-14); Neutrophils Absolute Auto 4000 /uL (1500-7000); Neutrophils Percent Auto 57.5 % (50-75); Platelet Count 163 X10^3/uL (150-400); Red Blood Cell Count 4.62 X10^6/uL (4.0-5.2); White Blood Cell Count 6.9 X10^3/uL (4.5-11.0)
[2020-03-12 20:57] LABS: PTT Partial Thromboplastin Tim 34 SECONDS (26.4-36.2)
[2020-03-12 20:59] LABS: Alanine Aminotransferase 17 IU/L (<35); Albumin 4.3 g/dL (3.5-5.0); Albumin Globulin Ratio 1.6 (1.0-2.8); Alkaline Phosphatase 71 U/L (38-126); Aspartate Aminotransferase 24 IU/L (14-36); BUN Creatinine Ratio 12.8 (6-22); Bilirubin Total 0.4 mg/dL (0.2-1.3); Blood Urea Nitrogen 14 mg/dL (7-17); Calcium 9.4 mg/dL (8.4-10.2); Carbon Dioxide 25 mmol/L (22-32); Chloride 102 mmol/L (98-107); Creatine Kinase 110 U/L (30-135); Estimated Glomerular Filt Rate 49.3 mL/min (>60); Globulin 2.7 g/dL (1.7-4.1); Glucose 114 mg/dL (80-110); HEMOLYSIS < 15 (0-50); Lipase 181 U/L (23-300); Potassium 3.9 mmol/L (3.4-5.1); Sodium 134 mmol/L (137-145)
--- NOTE | 2020-03-12 20:59 | ED.ARRPALP ---
HPI - Arrhythmia/Palpitations General Chief Complaint: Arrhythmia/Palpitations Stated Complaint: IRREGULAR HEART BEAT Time Seen by Provider: 03/12/20 20:12 Source: patient Mode of arrival: Ambulatory Related Data Home Medications Medication Instructions Recorded Confirmed omega-3 fatty acids 1,000 mg 1,000 mg PO DAILY 01/05/18 10/25/19 capsule Probiotic 2 cap PO DAILY 03/08/18 10/25/19 Glucosamine 2 tab PO DAILY 12/27/18 10/25/19 ibuprofen 200 mg tablet 600 mg PO Q4-6H PRN tab 01/24/19 10/25/19 melatonin 5 mg tablet 5 mg PO BEDTIME PRN 01/24/19 10/25/19 cholecalciferol (vitamin D3) 75 3,000 unit PO DAILY 06/22/19 10/25/19 mcg (3,000 unit) tablet Estradiol Cream 0.2% 0.5 gram VAGINAL .once a month 10/25/19 gram magnesium PO 10/25/19 Previous Rx's Medication Instructions Recorded doxycycline monohydrate 100 mg 100 mg PO DAILY #2 tab 11/21/19 tablet levothyroxine 88 mcg tablet 88 mcg PO DAILY #90 tab 12/07/19 pravastatin 40 mg tablet 40 mg PO QPM #90 tab 03/05/20 Allergies Allergy/AdvReac Type Severity Reaction Status Date / Time hydrocodone [From VICODIN] Allergy Mild NAUSEA Verified 10/25/19 13:56 ciprofloxacin AdvReac Severe Tendon Verified 10/25/19 13:56 pain, can't walk. Sulfa (Sulfonamide AdvReac Intermediate Diarrhea Verified 10/25/19 13:56 Antibiotics) [SULFA (SULFONAMIDE ANTIBIOTICS)] Patient History Medical History (Updated 03/12/20 @ 21:16 by Adriel Muse DO) Cataract (Resolved ~01/2011) Colon polyps (Resolved Unknown) Diverticulitis (Acute) Hemorrhoids (Acute) Hyperlipidemia (Chronic ~01/2011) Hypothyroidism (Chronic ~01/2011) Left hip pain (Acute 07/2019) Mild obstructive sleep apnea (Chronic ~01/2017) Surgical History History of knee replacement Status post hernia repair Status post hysterectomy Family History Sister History of breast cancer Sister Type 1 diabetes mellitus without complications OCD (obsessive compulsive disorder) Social History Smoking Status: Never smoker second hand exposure: No alcohol intake: never substance use type: does not use Smoking Status: Never smoker alcohol intake frequency: holidays/special occasions only Substance Use Type: does not use Exam Initial Vital Signs Initial Vital Signs: Vital Signs Temperature 98.9 F 03/12/20 20:15 Pulse Rate 89 03/12/20 20:15 Respiratory Rate 22 03/12/20 20:15 Pulse Oximetry 97 03/12/20 20:15 Course Orders Ordered: ED Orders 03/12/20 20:16 XR chest 1V Stat EKG-12 Lead Stat 03/12/20 20:41 Complete Blood Count AUTO DIFF Stat Comprehensive Metabolic Panel Stat Lipase Stat Partial Thromboplastin Time Stat Prothrombin Time INR Stat Troponin & CK Cardiac Panel Stat Sodium Chloride (Normal Saline 0.9%) 1,000 mls @ 1,000 mls/hr IV BOLUS ONE Stop: 03/12/20 22:15 Vital Signs Vital signs: Vital Signs - 8 hr 03/12/20 20:15 03/12/20 20:17 03/12/20 20:25 Temperature 98.9 F Pulse Rate 89 92 H 93 H Respiratory Rate 22 Blood Pressure 170/88 H Pulse Oximetry 97 03/12/20 20:28 03/12/20 20:30 Temperature Pulse Rate 94 H 90 Respiratory Rate Blood Pressure 181/82 H Pulse Oximetry 98 98 MDM - Arrhythmia/Palpitations Lab Data Result diagrams: 03/12/20 20:41 03/12/20 20:41 Labs: Lab Results 03/12/20 03/12/20 03/12/20 Range/Units 20:41 20:41 20:41 WBC 6.9 (4.5-11.0) X10^3/uL RBC 4.62 (4.0-5.2) X10^6/uL Hgb 14.4 (12.0-16.0) g/dL Hct 42.0 (36-46) % MCV 91.0 (80-100) fL MCH 31.1 (26-34) PG MCHC 34.2 (30-36) % RDW 13.0 (11.6-14.8) % Plt Count 163 (150-400) X10^3/uL Neut % (Auto) 57.5 (50-75) % Lymph % (Auto) 26.7 (25-40) % [place] % (Auto) 11.7 (3-14) % Eos % (Auto) 2.9 (2-4) % Baso % (Auto) 1.2 (0-2) % Neut # (Auto) 4000 (4699-6574) /uL Lymph # (Auto) 1800 (3150-4130) /uL [place] # (Auto) 800 (0-900) /uL Eos # (Auto) 200 (0-450) /uL Baso # (Auto) 100 (0-100) /uL PT 11.0 (10.1-12.7) SECONDS INR 1.0 (0.9-1.3) APTT 34 D (26.4-36.2) SECONDS Sodium 134 L (137-145) mmol/L Potassium 3.9 (3.4-5.1) mmol/L Chloride 102 (98-107) mmol/L Carbon Dioxide 25 (22-32) mmol/L BUN 14 (7-17) mg/dL Creatinine 1.09 H (0.52-1.04) mg/dL Estimated GFR 49.3 L (>60) mL/min BUN/Creatinine Ratio 12.8 (6-22) Glucose 114 H (80-110) mg/dL Calcium 9.4 (8.4-10.2) mg/dL Total Bilirubin 0.4 (0.2-1.3) mg/dL AST 24 (14-36) IU/L ALT 17 (<35) IU/L Alkaline Phosphatase 71 (38-126) U/L Total Creatine Kinase 110 (30-135) U/L CK-MB (CK-2) 0.86 (<2.37) ng/mL CK-MB (CK-2) Rel Index 0.8 L (1.5-5.0) % Troponin I < 0.012 (0.01-0.034) ng/mL Total Protein 7.0 (6.3-8.2) g/dL Albumin 4.3 (3.5-5.0) g/dL Globulin 2.7 (1.7-4.1) g/dL Albumin/Globulin Ratio 1.6 (1.0-2.8) Lipase 181 (23-300) U/L MDM Narrative Medical decision making narrative: Patient has mild bump in creatinine. Patient given 500mL of fluid. Ambulates without difficulty or symptoms. Multiple etiologies for patient's symptoms considered including: [PVCs versus atrial fibrillation versus electrolyte abnormality versus other] Patient's symptoms improved over duration of stay with above-stated therapies. Findings and discharge diagnosis discussed with patient/family followed by verbalization of understanding Return precautions discussed with patient/family whom verbalize understanding. Discharge Plan Departure Patient Disposition: Home Clinical Impression: Heart palpitations Instructions: DI for Palpitations Activity Restrictions/Additional Instructions: *You have been diagnosed with [ palpitations ] *What to do: *Continue to take medications as directed *Follow up with your primary care provider in 2-3 days, call for an appointment. Let them know you were seen in the Emergency Department and that we ask that you be seen in follow up *Return to ER if you should have any new, worsening or concerning symptoms Prescriptions: No Action omega-3 fatty acids 1,000 mg capsule 1,000 mg PO DAILY RF: 0 Probiotic 2 cap PO DAILY RF: 0 doxycycline monohydrate 100 mg tablet 100 mg PO DAILY Qty: 2 RF: 0 levothyroxine 88 mcg tablet 88 mcg PO DAILY Qty: 90 RF: 1 pravastatin 40 mg tablet 40 mg PO QPM Qty: 90 RF: 3 melatonin 5 mg tablet 5 mg PO BEDTIME PRN (Reason: Sleep) RF: 0 ibuprofen 200 mg tablet 600 mg PO Q4-6H PRN (Reason: pain) RF: 0 cholecalciferol (vitamin D3) 3,000 unit tablet 3,000 unit PO DAILY RF: 0 Estradiol Cream 0.2% 0.5 gram vaginal .once a month RF: 0 magnesium PO RF: 0 Glucosamine 2 tab PO DAILY RF: 0 Referrals: Apolonia Soto ARNP [Primary Care Provider] -
[2020-03-12 21:11] LABS: Troponin I < 0.012 ng/mL (0.01-0.034)
[2020-03-12 21:14] LABS: CKMB % Relative Index 0.8 % (1.5-5.0); Creatine Kinase MB 0.86 ng/mL (<2.37)
[2020-03-12] MEDS: SODIUM CHLORIDE 0.9% 1,000 ML 1000 ML IV (21:15)
--- NOTE | 2020-03-12 22:14 | PC.NURSE ---
IV fluids stopped at 500ml in per Dr Muse.
== END 2020-03-12 22:20 | disposition home or self-care (01) ==
PROVIDERS: Emergency Provider Emergency Medicine; PCP Nurse Practitioner Family
DX: R00.2 Palpitations (principal)
CPT/HCPCS: 36415; 71045; 80053; 82550; 82553; 83690; 84484; 85025; 85610; 85730; 93005; 96360; 99284

== ENCOUNTER → 2020-04-03 14:46 | Outpatient (CLI) | payer OTHER, SELFPAY ==
[2020-04-03 15:34] LABS: Hematocrit 44.3 % (36-46); Hemoglobin 15.1 g/dL (12.0-16.0); Mean Corpuscular HGB Conc 34.1 % (30-36); Mean Corpuscular Hemoglobin 30.7 PG (26-34); Platelet Count 186 X10^3/uL (150-400); Red Blood Cell Count 4.93 X10^6/uL (4.0-5.2); Red Cell Distribution Width 12.7 % (11.6-14.8); White Blood Cell Count 7.9 X10^3/uL (4.5-11.0)
[2020-04-03 15:57] LABS: Alanine Aminotransferase 17 IU/L (<35); Albumin 4.5 g/dL (3.5-5.0); Albumin Globulin Ratio 1.6 (1.0-2.8); Alkaline Phosphatase 81 U/L (38-126); Aspartate Aminotransferase 25 IU/L (14-36); BUN Creatinine Ratio 8.9 (6-22); Bilirubin Total 0.6 mg/dL (0.2-1.3); Blood Urea Nitrogen 8 mg/dL (7-17); Calcium 9.4 mg/dL (8.4-10.2); Carbon Dioxide 27 mmol/L (22-32); Chloride 92 mmol/L (98-107); Estimated Glomerular Filt Rate > 60.0 mL/min (>60); Globulin 2.8 g/dL (1.7-4.1); Glucose 88 mg/dL (80-110); HEMOLYSIS < 15 (0-50); Potassium 4.7 mmol/L (3.4-5.1); Sodium 129 mmol/L (137-145); Total Protein 7.3 g/dL (6.3-8.2)
[2020-04-03 16:19] LABS: Appearance Urine UA CLEAR; Bilirubin Urine UA NEGATIVE (NEGATIVE); Color Urine UA YELLOW; Glucose Urine UA NEGATIVE (Negative); Ketones Urine UA NEGATIVE (NEGATIVE); Leukocyte Esterase Urine UA NEGATIVE (NEGATIVE); Nitrite Urine UA NEGATIVE (Negative); Occult Blood Urine UA TRACE-INTACT (Negative); Protein Urine UA NEGATIVE (Negative); Specific Gravity Urine UA <=1.005 (1.000-1.035); Urobilinogen Urine UA 0.2 E.U./dL (0.2)
== END ==
PROVIDERS: PCP Nurse Practitioner Family; Referring Provider Nurse Practitioner Family; Visit Provider Nurse Practitioner Family
DX: R14.0 Abdominal distension (gaseous) (principal)
CPT/HCPCS: 36415; 80053; 81003; 85027

== ENCOUNTER → 2020-04-04 08:27 | Outpatient (CLI) | payer OTHER, SELFPAY ==
[2020-04-04 09:22] LABS: Sodium 131 mmol/L (137-145)
[2020-04-05 15:21] LABS: Osmolality, Serum 274 mOsmol/kg (280-301)
== END ==
PROVIDERS: PCP Nurse Practitioner Family; Referring Provider Nurse Practitioner Family; Visit Provider Nurse Practitioner Family
DX: E87.1 Hypo-osmolality and hyponatremia (principal)
CPT/HCPCS: 36415; 83930; 84295

== ENCOUNTER → 2020-04-09 14:04 | Outpatient (CLI) | payer OTHER, SELFPAY ==
--- NOTE | 2020-05-03 11:05 | PM.CARDMON.1 ---
Dial Marker Report Referral & Results Date Patient Seen: 04/09/20 Requesting provider: Apolonia Soto Indication: Palpitations Duration of monitoring (days): 14 Diary information: There was 1 patient triggered event and 1 patient diary entry Both of these events were associated (within 45 seconds) with sinus rhythm and PACs Data: Minimum heart rate identified was 42 beats per minute at 08:40 on 04/13/2020 Maximum sinus heart rate was 130 beats per minute at 17:53 on 04/14/2020 Maximum overall heart rate was 187 beats per minute at 13:16 on 04/13/2020 during a 4 beat run of ventricular tachycardia Patient had only the 1 run of nonsustained ventricular tachycardia There were 2 runs of SVT/atrial tachycardia with the fastest being 118 beats per minute which suggest atrial tachycardia. This was also the longest run. Patient had approximately 2% of identified beats as supraventricular ectopic in origin Less than 1% of identified beats were ventricular ectopic in origin Impression: 14 day threat monitoring analyst showing 1 brief run of nonsustained ventricular tachycardia. Patient also with notable occasional supraventricular ectopic dysrhythmias as above. Clinical correlation suggested
== END ==
LOC: CAR 14:05 → HOLT 14:11 → CAR 15:01
PROVIDERS: PCP Nurse Practitioner Family; Referring Provider Nurse Practitioner Family; Visit Provider Nurse Practitioner Family
DX: R00.2 Palpitations (principal)
CPT/HCPCS: 0296T; 0298T

== ENCOUNTER → 2020-04-13 09:12 | Outpatient (CLI) | payer OTHER, SELFPAY ==
--- NOTE | 2020-04-13 09:13 | DI.US.S_ITS ---
PROCEDURE: US ABDOMEN COMPLETE INDICATIONS: abdominal bloating, tenderness TECHNIQUE: Real-time scanning was performed of the abdominal and retroperitoneal organs, with image documentation. COMPARISON: None. FINDINGS: Liver: Liver is normal in size and homogeneous in echotexture. Gallbladder: Nondilated. No stones or sludge. Gallbladder polyp measuring 0.4 x 0.3 x 0.3 cm. Normal gallbladder wall thickness. No pericholecystic fluid. Negative sonographic May's sign. Biliary ducts: Intrahepatic bile ducts are non-dilated. Extrahepatic bile duct caliber measures 6 mm. Normal is 6-7 mm or less in diameter, or 10 mm or less post-cholecystectomy. Pancreas: Visualized portions of the pancreas are sonographically normal. Spleen: Spleen is normal in size and homogeneous in echotexture. Kidneys: Kidneys are normal in size and echotexture. Right kidney measures 10 cm long; left kidney measures 11.5 cm long. No hydronephrosis. Left renal echogenic focus measuring 0.5 cm. No solid masses. Aorta: Visualized aorta is normal in caliber at less than 3 cm. Iliacs: Proximal common iliac arteries are normal in caliber at less than 2.5 cm. IVC: Intrahepatic inferior vena cava is patent. Miscellaneous: No free abdominal fluid. IMPRESSION: 1. No acute cholecystitis. No gallstones. 2. Small gallbladder polyp measuring 0.4 cm. -No further imaging follow-up required. 3. No hydronephrosis. Left kidney stone measuring 0.5 cm. Dictated by: Florin Strong M.D. on 04/13/2020 at 14:57 Approved by: Florin Strong M.D. on 04/13/2020 at 15:01
--- NOTE | 2020-04-13 09:40 | DI.ECHO.S_ITS ---
Echocardiogram Report + + :Name: KERRI RUBIO Study Date: 04/13/2020 Height: 66 in : :[facility] Weight: 200 lb : : Gender: Female BSA: 2.0 m2 : :: 1945 Age: 74 yrs BP: 131/91 mmHg: :Reason For Study: Palpitations : : Performed By: Janie Page : :Referring: LEONEL GILL : + + Interpretation Summary Left ventricular systolic function is normal with an estimated ejection fraction of 55 to 60% without focal wall motion abnormality. There is borderline concentric LVH but probable normal filling pressures. The right ventricle is normal. Right ventricular systolic pressure cannot be estimated but the CVP is likely around 3 mmHg. Both atria are normal in size. The mitral valve appears anatomically normal with mild mitral regurgitation but there is no other significant valvular abnormality. The ascending aorta is mild to moderately enlarged. Procedure: A two-dimensional transthoracic echocardiogram with color flow and Doppler was performed. The study quality was technically adequate. There is no prior echocardiogram noted for this patient. The patient was in normal sinus rhythm during the exam. The patient had occasional PACs during the exam. Left Ventricle: The left ventricle is normal in size. There is borderline concentric left ventricular hypertrophy. Left ventricular systolic function is normal without focal wall motion abnormalities. The ejection fraction is estimated to be 55-60%. Diastolic parameters suggest probable normal left ventricular diastolic function and normal filling pressures. Right Ventricle: The right ventricle is normal in size and function. Atria: Both atria are normal in size. There is no Doppler evidence for an interatrial shunt. Mitral Valve: The mitral valve leaflets appear normal. There is no evidence of stenosis, fluttering, or prolapse. There is mild mitral regurgitation. Aortic Valve: The aortic valve is trileaflet. The aortic valve opens well. No aortic regurgitation is present. Tricuspid Valve: The tricuspid valve is normal in structure and function. There is a trace or physiologic amount of tricuspid regurgitation. Pulmonary artery pressures cannot be estimated because of the lack of a measurable TR jet velocity but the IVC suggests a CVP of around 3 mmHg. Pulmonic Valve: The pulmonic valve is not well seen, but is grossly normal. There is trace pulmonic regurgitation. There is no other significant valvular heart disease. Great Vessels: The aortic root is normal size. The ascending aorta is mildmoderately enlarged. The pulmonary artery is not well visualized, but is probably normal size. The IVC is of normal diameter and collapses greater than 50% with a sniff. This suggests a low right atrial pressure of 3 mm Hg. Pericardium/ Pleura There is no pericardial effusion. There is no pleural effusion. MMode/2D Measurements & Calculations LVIDd: 4.6 cm LVOT diam: 2.0 cm LVIDs: 2.9 cm Ao root diam: 3.3 cm FS: 35.6 % asc Aorta Diam: 3.8 cm EPSS: 0.44 cm Ao Arch Diam (Prox Trans): 2.9 cm IVSd: 0.87 cm LVPWd: 0.97 cm LV maldonado. diameter/BSA (cm/m^2): 2.3 LV sys. diameter/BSA (cm/m^2): 1.5 LA A2 area: 18.1 cm2 RA long axis: 4.8 cm LA A4 area: 19.5 cm2 RA area: 16.2 cm2 LA length (vol): 5.2 cm RA vol: 46.6 ml LA vol: 57.5 ml RA : 23.3 ml/m2 LA vol index: 28.8 ml/m2 IVC diam: 1.5 cm RVD1 (basal): 3.9 cm TAPSE: 1.7 cm Doppler Measurements & Calculations Ao V2 max: 122.7 cm/sec LVOT Max Boyd: 75.0 cm/sec Ao V2 mean: 89.9 cm/sec LV V1 max P.2 mmHg Ao max P.0 mmHg LV V1 VTI: 16.5 cm Ao mean P.4 mmHg NEAL(I,D): 2.1 cm2 Ao V2 VTI: 25.9 cm NEAL(V,D): 2.0 cm2 sev ratio: 0.64 NEAL indexed to BSA (cm^2/m^2): 1.0 MV E max boyd: 49.3 cm/sec PA V2 max: 63.3 cm/sec MV A max boyd: 88.6 cm/sec PA V2 mean: 39.7 cm/sec MV E/A: 0.56 PA mean P.73 mmHg Med Peak E' Boyd: 4.8 cm/sec PA Accel Time: 0.07 sec E/E' med: 10.3 Lat Peak E' Boyd: 8.3 cm/sec E/E' lat: 6.0 E/e' average: 8.1 MV dec time: 0.22 sec SV([facility]): 54.2 ml Reading Physician:11:15 AM
== END ==
PROVIDERS: PCP Nurse Practitioner Family; Referring Provider Nurse Practitioner Family; Visit Provider Nurse Practitioner Family
DX: I34.0 Nonrheumatic mitral (valve) insufficiency (principal); I77.89 Other specified disorders of arteries and arterioles; R00.2 Palpitations; R14.0 Abdominal distension (gaseous); K82.4 Cholesterolosis of gallbladder; N20.0 Calculus of kidney
CPT/HCPCS: 76700; 93306

== ENCOUNTER → 2020-04-18 15:40 | Outpatient (CLI) | payer OTHER, SELFPAY ==
[2020-04-18 17:45] LABS: BUN Creatinine Ratio 16.1 (6-22); Blood Urea Nitrogen 14 mg/dL (7-17); Calcium 9.5 mg/dL (8.4-10.2); Carbon Dioxide 25 mmol/L (22-32); Chloride 98 mmol/L (98-107); Estimated Glomerular Filt Rate > 60.0 mL/min (>60); Glucose 191 mg/dL (80-110); HEMOLYSIS 15 (0-50); Potassium 3.9 mmol/L (3.4-5.1); Sodium 134 mmol/L (137-145)
== END ==
PROVIDERS: PCP Nurse Practitioner Family; Referring Provider Nurse Practitioner Family; Visit Provider Nurse Practitioner Family
DX: E87.1 Hypo-osmolality and hyponatremia (principal)
CPT/HCPCS: 36415; 80048

== ENCOUNTER → 2020-07-06 09:05 | Outpatient (CLI) | payer OTHER, SELFPAY ==
[2020-07-06 09:57] LABS: Hematocrit 43.8 % (36-46); Hemoglobin 14.5 g/dL (12.0-16.0); Mean Corpuscular HGB Conc 33.1 % (30-36); Mean Corpuscular Hemoglobin 30.5 PG (26-34); Mean Corpuscular Volume 92.3 fL (80-100); Platelet Count 158 X10^3/uL (150-400); Red Blood Cell Count 4.74 X10^6/uL (4.0-5.2); Red Cell Distribution Width 13.1 % (11.6-14.8); White Blood Cell Count 6.5 X10^3/uL (4.5-11.0)
[2020-07-06 10:25] LABS: Alanine Aminotransferase 17 IU/L (<35); Albumin 4.1 g/dL (3.5-5.0); Albumin Globulin Ratio 1.5 (1.0-2.8); Alkaline Phosphatase 76 U/L (38-126); Aspartate Aminotransferase 22 IU/L (14-36); BUN Creatinine Ratio 15.4 (6-22); Bilirubin Total 0.4 mg/dL (0.2-1.3); Blood Urea Nitrogen 14 mg/dL (7-17); Calcium 9.2 mg/dL (8.4-10.2); Carbon Dioxide 28 mmol/L (22-32); Chloride 100 mmol/L (98-107); Estimated Glomerular Filt Rate > 60.0 mL/min (>60); Globulin 2.8 g/dL (1.7-4.1); Glucose 123 mg/dL (80-110); HEMOLYSIS < 15 (0-50); Potassium 4.6 mmol/L (3.4-5.1); Sodium 133 mmol/L (137-145); Total Protein 6.9 g/dL (6.3-8.2)
[2020-07-06 10:54] LABS: Thyroid Stimulating Hormone 2.98 uIU/mL (0.47-4.68)
[2020-07-06 16:23] LABS: Hemoglobin A1C% w Est Avg Glu 7.1 % (4.0-6.0)
== END ==
PROVIDERS: PCP Nurse Practitioner Family; Referring Provider Specialist; Visit Provider Nurse Practitioner Family
DX: E03.9 Hypothyroidism, unspecified (principal); R19.4 Change in bowel habit; R73.9 Hyperglycemia, unspecified
CPT/HCPCS: 36415; 80053; 83036; 84443; 85027

== ENCOUNTER → 2020-07-24 11:43 | Outpatient (CLI) | payer OTHER, SELFPAY ==
[2020-07-24 12:39] LABS: BUN Creatinine Ratio 14.3 (6-22); Blood Urea Nitrogen 13 mg/dL (7-17); Calcium 9.7 mg/dL (8.4-10.2); Carbon Dioxide 29 mmol/L (22-32); Chloride 97 mmol/L (98-107); Estimated Glomerular Filt Rate > 60.0 mL/min (>60); Glucose 96 mg/dL (80-110); HEMOLYSIS 21 (0-50); Potassium 4.7 mmol/L (3.4-5.1); Sodium 132 mmol/L (137-145)
== END ==
PROVIDERS: PCP Nurse Practitioner Family; Referring Provider Specialist; Visit Provider Specialist
DX: N28.9 Disorder of kidney and ureter, unspecified (principal)
CPT/HCPCS: 36415; 80048

== ENCOUNTER → 2020-07-25 11:21 | Outpatient (CLI) | payer OTHER, SELFPAY ==
--- NOTE | 2020-07-25 11:59 | DI.CT.S_ITS ---
PROCEDURE: CT ABDOMEN PELVIS WO/W CON INDICATIONS: Microscopic hematuria TECHNIQUE: Optional 5 mm thick noncontrast images acquired from the diaphragm to the symphysis pubis. After the administration of intravenous contrast, 5 mm thick images acquired from the diaphragm to the symphysis pubis after a 10-minute delay. 2 mm thick coronal and sagittal reformats were then performed of the kidneys and ureters. For radiation dose reduction, the following was used: automated exposure control, adjustment of mA and/or kV according to patient size. COMPARISON: [facility], US, US ABDOMEN COMPLETE, 04/13/2020, 10:27. [facility], CT, CT ABDOMEN PELVIS W CON, 06/17/2019, 16:44. FINDINGS: Image quality: Excellent. Lung bases: Lung bases are clear. Heart size is normal. Urinary system: Both kidneys are normal in size without hydronephrosis. There is a punctate calcification within the upper pole of the left kidney which may represent a nonobstructing stone or parenchymal calcification in the setting of prior infarct or infection. Cortical scar is associated with this region. No perinephric fat stranding. There is normal bilateral renal enhancement. 5 mm hyperdense cyst is noted within the midpole of the right kidney. Renal calyces appear normal in morphology when filled with contrast. Opacified portions of both ureters demonstrate normal caliber. The bladder wall is thickened with perivesicular fat stranding noted. The bladder is only partially contrast filled. No calcified bladder stones. The uterus is surgically absent. The ovaries are unremarkable. There is a 1.7 cm in diameter rim calcified right para ovarian cyst or mass. Other solid organs: Liver is normal in size and enhancement. Gallbladder is markedly distended. No discrete gallbladder wall thickening or pericholecystic fluid. No gallstones visualized. There is mild central intrahepatic biliary ductal dilatation. The cystic duct and the common bile duct are moderately dilated. The central portion of the bile duct appears normal in size. No discrete filling defects or stones visualized. The pancreas demonstrates overall normal enhancement; however trace fat stranding is noted at the pancreatic head (series 5/image 79). Spleen is normal in size and enhancement. No adrenal nodules. Peritoneum and bowel: Bowel loops demonstrate normal wall thickness and caliber. The appendix is thin walled and gas filled. There are scattered sigmoid diverticula. No evidence for diverticulitis. No free fluid or air. Nodes and vessels: No retroperitoneal or mesenteric adenopathy by size criteria. Aorta and inferior vena cava are normal in size. There are scattered atheromatous calcifications throughout the aorta and iliac arteries bilaterally. Abdominal wall: No ventral hernias. Pelvis: No pathologic free pelvic fluid. No inguinal adenopathy. There are moderate-sized bilateral fat containing inguinal hernias. Bones: No suspicious bony lesions. No acute vertebral body compression fractures. Wedge compression deformity at L1 is unchanged from 2019. IMPRESSION: 1. No hydronephrosis, hydroureter, or ureterolithiasis. Possible left nonobstructing nephrolithiasis. No bladder calculi. 2. Mild bladder wall thickening and perivesicular fat stranding raising the suspicion for cystitis. Please correlate with symptoms and urinalysis. This may be the etiology of the patient's hematuria. 3. Marked distention of the gallbladder with mild intra and extrahepatic biliary ductal dilatation. Mild fat stranding is also noted at the head of the pancreas which is a new finding when compared with the prior CT of the abdomen dated June 17, 2019. Findings raise the suspicion for mild gallstone pancreatitis or other central obstruction of the biliary tract. Please correlate clinically. If further characterization is warranted, MRCP could be used to evaluate for central obstruction or partially obstructive mass. Dictated by: Angelita Wong M.D. on 07/25/2020 at 13:46 Approved by: Angelita Wong M.D. on 07/25/2020 at 14:10
== END ==
PROVIDERS: PCP Nurse Practitioner Family; Referring Provider Specialist; Visit Provider Specialist
DX: R31.29 Other microscopic hematuria (principal); K83.8 Other specified diseases of biliary tract
CPT/HCPCS: 74178; Q9967

== ENCOUNTER → 2020-08-06 15:16 | Outpatient (CLI) | payer OTHER, SELFPAY ==
[2020-08-06 16:32] LABS: Add Manual Diff / Slide Review NO; Basophils Absolute Auto 100 /uL (0-100); Eosinophils Absolute Auto 100 /uL (0-450); Eosinophils Percent Auto 2.1 % (2-4); Hematocrit 41.6 % (36-46); Hemoglobin 13.9 g/dL (12.0-16.0); Lymphocytes Absolute Auto 800 /uL (1100-4500); Lymphocytes Percent Auto 15.3 % (25-40); Mean Corpuscular HGB Conc 33.4 % (30-36); Mean Corpuscular Hemoglobin 30.6 PG (26-34); Mean Corpuscular Volume 91.7 fL (80-100); Monocytes Absolute Auto 500 /uL (0-900); Monocytes Percent Auto 9.5 % (3-14); Neutrophils Absolute Auto 3700 /uL (1500-7000); Neutrophils Percent Auto 72.1 % (50-75); Platelet Count 153 X10^3/uL (150-400); Red Blood Cell Count 4.54 X10^6/uL (4.0-5.2); Red Cell Distribution Width 13.9 % (11.6-14.8); White Blood Cell Count 5.2 X10^3/uL (4.5-11.0)
[2020-08-06 16:38] LABS: INR 1.1 (0.9-1.3); Prothrombin Time 12.8 SECONDS (10.1-12.7)
[2020-08-06 16:41] LABS: PTT Partial Thromboplastin Tim 36 SECONDS (26.4-36.2)
[2020-08-06 16:45] LABS: Alanine Aminotransferase 714 IU/L (<35); Albumin 4.5 g/dL (3.5-5.0); Albumin Globulin Ratio 1.4 (1.0-2.8); Alkaline Phosphatase 281 U/L (38-126); Aspartate Aminotransferase 448 IU/L (14-36); Bilirubin Total 5.8 mg/dL (0.2-1.3); Blood Urea Nitrogen 13 mg/dL (7-17); Calcium 9.7 mg/dL (8.4-10.2); Carbon Dioxide 28 mmol/L (22-32); Chloride 93 mmol/L (98-107); Estimated Glomerular Filt Rate > 60.0 mL/min (>60); Globulin 3.3 g/dL (1.7-4.1); Glucose 149 mg/dL (80-110); HEMOLYSIS < 15 (0-50); Potassium 4.1 mmol/L (3.4-5.1); Sodium 127 mmol/L (137-145); Total Protein 7.8 g/dL (6.3-8.2)
[2020-08-09 14:05] LABS: Lipase 75 U/L (23-300)
== END ==
PROVIDERS: PCP Nurse Practitioner Family; Referring Provider Family Medicine; Visit Provider Family Medicine
DX: R17 Unspecified jaundice (principal); R93.5 Abnormal findings on diagnostic imaging of other abdominal regions, including retroperitoneum
CPT/HCPCS: 36415; 80053; 83690; 85025; 85610; 85730

== ENCOUNTER → 2020-08-08 19:34 | Outpatient (CLI) | payer OTHER, SELFPAY ==
--- NOTE | 2020-08-08 19:36 | DI.MRI.S_ITS ---
PROCEDURE: MR ABDOMEN WO CON INDICATIONS: Jaundice, possible obstructing mass TECHNIQUE: Coronal HASTE through the abdomen, axial 2-D FLASH in- and [id number], and breath-hold T2 FSE with fat saturation through the biliary system and pancreas. Oblique coronal and axial thin-slice HASTE, radial thick-slab HASTE centered on the extrahepatic bile ducts. Intravenous secretin: Not requested. COMPARISON: [facility], CT, CT ABDOMEN PELVIS WO/W CON, 07/25/2020, 11:37. FINDINGS: Image quality: Excellent. Pancreas and biliary system: Moderate intrahepatic biliary dilatation, dilated hepatic duct up to 15 mm, distended gallbladder and dilated cystic duct, and abrupt termination of the common bile duct following the cystic duct confluence. The proximal pancreatic duct is mildly dilated at 5 mm in the head. There is a blunting of both the pancreatic duct and common bile duct at the level of the pancreatic head. A discrete mass measuring 1.7 cm is not well seen without contrast, but implied. This corresponds to the area of focal fat stranding in the pancreatic head seen on CT. No discrete filling defects in the ducts are visible. A small amount of material is present dependently in the gallbladder, likely sludge from biliary stasis. Other solid organs: Liver is normal in size. Spleen is normal in size. No adrenal nodules. Both kidneys are normal in size, without hydronephrosis. Nodes and vessels: No retroperitoneal or mesenteric adenopathy by size criteria. Aorta and inferior vena cava are normal in size. Bowel and peritoneum: Unenhanced bowel loops are normal in caliber. No free fluid. Lung bases: No basal pleural effusions. Heart size is normal. Bones and soft tissues: No ventral hernias. Bone marrow is of normal overall signal. IMPRESSION: 1. Moderate intra and extrahepatic biliary obstruction early pancreatic Duct obstruction which appears to be from soft tissue mass measuring less than 2 cm in the pancreatic head. No discrete intraductal filling defects. Alternative etiologies such as focal pancreatitis or ampullary stricture, however malignant neoplasm should be excluded. ERCP is recommended. 2. Probable gallbladder sludge without stones. Dictated by: Gemini Saucedo M.D. on 08/09/2020 at 9:41 Approved by: Gemini Saucedo M.D. on 08/09/2020 at 9:55
== END ==
PROVIDERS: PCP Nurse Practitioner Family; Referring Provider Family Medicine; Visit Provider Family Medicine
DX: R93.5 Abnormal findings on diagnostic imaging of other abdominal regions, including retroperitoneum (principal); R17 Unspecified jaundice; K86.89 Other specified diseases of pancreas; K83.1 Obstruction of bile duct
CPT/HCPCS: 74181

== ENCOUNTER 2020-08-09 11:59 | Emergency (ER) | payer OTHER, SELFPAY ==
[2020-08-09] VITALS (8 sets, daily range): BP systolic 123–177; BP diastolic 63–94; PULSE 60–83; RESP 16; TEMP 36.8; O2SAT 96–98; BMI 31.4
[2020-08-09 12:53] LABS: Add Manual Diff / Slide Review NO; Basophils Absolute Auto 0 /uL (0-100); Basophils Percent Auto 0.8 % (0-2); Eosinophils Absolute Auto 200 /uL (0-450); Eosinophils Percent Auto 4.4 % (2-4); Hematocrit 41.8 % (36-46); Lymphocytes Absolute Auto 800 /uL (1100-4500); Lymphocytes Percent Auto 14.9 % (25-40); Mean Corpuscular HGB Conc 33.5 % (30-36); Mean Corpuscular Volume 92.4 fL (80-100); Monocytes Absolute Auto 700 /uL (0-900); Monocytes Percent Auto 13.1 % (3-14); Neutrophils Absolute Auto 3500 /uL (1500-7000); Neutrophils Percent Auto 66.8 % (50-75); Platelet Count 148 X10^3/uL (150-400); Red Blood Cell Count 4.53 X10^6/uL (4.0-5.2); White Blood Cell Count 5.3 X10^3/uL (4.5-11.0)
--- NOTE | 2020-08-09 12:57 | ED.ABDPAIN ---
HPI - Abdominal Pain General Chief Complaint: Abdominal Pain Stated Complaint: MRI last night sent by dr Garber Time Seen by Provider: 08/09/20 12:18 Source: patient, family () and other (Dr. Garber) Mode of arrival: Ambulatory Limitations: no limitations History of Present Illness HPI narrative: This is a 75-year-old female who states she has had several weeks of painless jaundice. She 1st noticed changes in the sclerae of her eyes. She states that it has been increasing over time. She denies any abdominal pain currently but did have abdominal pain for several days approximately 3 weeks ago. She states she was also quite tender on palpation in she was evaluated by her physician and again earlier this week on palpation in the epigastric area. When she does not have any palpation she denies any abdominal discomfort. She has had pasty white colored formed stools about 3 weeks ago. She denies any urinary symptoms no frequency, dysuria or urgency. Patient denies any fevers, chills, no chest pain or shortness of breath. She denies any swelling in her extremities. Patient states she followed up with her primary care team who ordered labs she had elevation in her bilirubin and LFTs and MRCP was ordered which shows biliary obstruction in the form of a soft tissue mass measuring less than 2 cm in the pancreatic head. Patient did have CT imaging which showed some changes to the gallbladder, fat stranding on 07/25/2020. Patient takes medication for dyslipidemia, hypothyroidism and type 2 diabetes. Patient has prior history of knee replacement, hernia repair and hysterectomy. No tobacco, denies alcohol or illicit drug use. Related Data Home Medications Medication Instructions Recorded Confirmed omega-3 fatty acids 1,000 mg 1,000 mg PO DAILY 01/05/18 08/06/20 capsule Probiotic 2 cap PO DAILY 03/08/18 08/06/20 Glucosamine 2 tab PO DAILY 12/27/18 08/06/20 ibuprofen 200 mg tablet 600 mg PO Q4-6H PRN tab 01/24/19 08/06/20 melatonin 5 mg tablet 5 mg PO BEDTIME PRN 01/24/19 08/06/20 cholecalciferol (vitamin D3) 75 3,000 unit PO DAILY 06/22/19 08/06/20 mcg (3,000 unit) tablet magnesium PO 10/25/19 08/06/20 Estradiol 0.0125% Vaginal Cream See Rx Instructions VAGINAL .1-2XW 08/06/20 12/21/20 gram Previous Rx's Medication Instructions Recorded levothyroxine 88 mcg tablet 88 mcg PO DAILY #90 tab 05/29/20 blood sugar diagnostic #100 ea 07/30/20 blood-glucose meter #1 ea 07/30/20 lancets #100 ea 07/30/20 pravastatin 40 mg tablet 40 mg PO QPM #90 tab 07/30/20 diazepam 5 mg tablet 5 mg PO ONCE PRN #1 tab 08/08/20 ondansetron HCl 4 mg tablet 4 mg PO Q8H PRN #14 tab 08/08/20 Allergies Allergy/AdvReac Type Severity Reaction Status Date / Time hydrocodone [From VICODIN] Allergy Mild NAUSEA Verified 08/09/20 12:10 ciprofloxacin AdvReac Severe Tendon Verified 08/09/20 12:10 pain, can't walk. Sulfa (Sulfonamide AdvReac Intermediate Diarrhea Verified 08/09/20 12:10 Antibiotics) [SULFA (SULFONAMIDE ANTIBIOTICS)] Review of Systems Review of Systems ROS Unobtainable: All systems reviewed & are unremarkable except as noted in HPI and below Patient History Medical History Abdominal bloating Abnormal CT of the abdomen Arthritis Bowel habit changes Cataract (~01/2011) Colon polyps (Unknown) Diverticulitis Diverticulosis [place] Hematuria Hematuria Hemorrhoids History of recurrent UTI (urinary tract infection) Hyperlipidemia (~01/2011) Hyponatremia Hypothyroidism (~01/2011) Left hip pain (07/2019) Mild obstructive sleep apnea (~01/2017) Postmenopausal atrophic vaginitis Thyroid disease Type 2 diabetes mellitus Surgical History H/O breast biopsy History of knee replacement Status post hernia repair Status post hysterectomy Family History Sister History of breast cancer Sister Type 1 diabetes mellitus without complications OCD (obsessive compulsive disorder) Social History Smoking Status: Never smoker second hand exposure: No alcohol intake: never substance use type: does not use Smoking Status: Never smoker alcohol intake frequency: holidays/special occasions only Substance Use Type: does not use Exam Narrative Exam Narrative: GENERAL: Alert and oriented x three, well-nourished female in mild distress. HEENT: Head normocephalic, atraumatic, EOMI, positive for scleral icterus, pupils reactive, face symmetric, moist mucous membranes NECK: Supple, full range of motion CARDIOVASCULAR: Regular rate and rhythm without murmurs, rubs or gallops. RESPIRATORY: Breath sounds equal bilaterally, no wheezes rales or rhonchi. ABDOMEN: Soft, mild epigastric tenderness with palpation. Normoactive bowel sounds all 4 quadrants. No guarding or rebound, rigidity, no mass : No CVA tenderness EXTREMITIES: Normal range of motion, no clubbing or edema. Neurovascularly intact NEUROLOGICAL: Cranial nerves II through XII grossly intact. Moving all extremities SKIN: Warm, dry, no petechiae, no rashes or lesions. Positive for jaundice. Initial Vital Signs Initial Vital Signs: Vital Signs Temperature 98.3 F 08/09/20 12:05 Pulse Rate 83 08/09/20 12:05 Respiratory Rate 16 08/09/20 12:05 Blood Pressure 177/94 H 08/09/20 12:05 Pulse Oximetry 97 08/09/20 12:05 Course Orders Ordered: ED Orders 08/09/20 13:00 COVID19 Stat 08/09/20 13:07 Amylase Stat Comprehensive Metabolic Panel Stat Partial Thromboplastin Time Stat Prothrombin Time INR Stat 08/09/20 13:40 Urine Culture Stat Urine Microscopic Stat Vital Signs Vital signs: Vital Signs - 8 hr 08/09/20 12:05 08/09/20 13:00 08/09/20 13:01 Temperature 98.3 F Pulse Rate 83 70 60 Respiratory Rate 16 16 Blood Pressure 177/94 H 135/63 Pulse Oximetry 97 98 97 08/09/20 13:30 08/09/20 13:44 08/09/20 14:00 Temperature Pulse Rate 65 77 62 Respiratory Rate 16 Blood Pressure 133/66 141/73 H 142/73 H Pulse Oximetry 96 96 96 08/09/20 14:30 08/09/20 17:14 Temperature Pulse Rate 65 69 Respiratory Rate 16 16 Blood Pressure 123/80 136/88 Pulse Oximetry 98 98 MDM - Abdominal Pain Lab Data Attestation: I reviewed the patient's lab results. Result diagrams: 08/09/20 Unknown 08/09/20 13:07 Labs: Lab Results 08/09/20 08/09/20 08/09/20 Range/Units 13:00 13:07 13:07 WBC (4.5-11.0) X10^3/uL RBC (4.0-5.2) X10^6/uL Hgb (12.0-16.0) g/dL Hct (36-46) % MCV (80-100) fL MCH (26-34) PG MCHC (30-36) % RDW (11.6-14.8) % Plt Count (150-400) X10^3/uL Neut % (Auto) (50-75) % Lymph % (Auto) (25-40) % [place] % (Auto) (3-14) % Eos % (Auto) (2-4) % Baso % (Auto) (0-2) % Neut # (Auto) (7500-1522) /uL Lymph # (Auto) (8950-3749) /uL [place] # (Auto) (0-900) /uL Eos # (Auto) (0-450) /uL Baso # (Auto) (0-100) /uL PT 13.6 H (10.1-12.7) SECONDS INR 1.2 (0.9-1.3) APTT 35 (26.4-36.2) SECONDS Sodium 127 L (137-145) mmol/L Potassium 4.1 (3.4-5.1) mmol/L Chloride 95 L (98-107) mmol/L Carbon Dioxide 25 (22-32) mmol/L BUN 9 (7-17) mg/dL Creatinine 0.77 (0.52-1.04) mg/dL Estimated GFR > 60.0 (>60) mL/min BUN/Creatinine Ratio 11.7 (6-22) Glucose 158 H (80-110) mg/dL Calcium 9.5 (8.4-10.2) mg/dL Total Bilirubin 7.6 H (0.2-1.3) mg/dL AST 421 H (14-36) IU/L ALT 737 H (<35) IU/L Alkaline Phosphatase 287 H (38-126) U/L Total Protein 7.4 (6.3-8.2) g/dL Albumin 4.2 (3.5-5.0) g/dL Globulin 3.2 (1.7-4.1) g/dL Albumin/Globulin Ratio 1.3 (1.0-2.8) Amylase 42 (30-110) U/L Urine RBC (0-5/HPF) Urine WBC (0-5/HPF) Ur Squamous Epith Cells (0-5/HPF) Calcium Oxalate Crystal Amorphous Sediment Urine Bacteria (None) Ur Culture Indicated? COVID-19 PCR Negative (Negative) 08/09/20 08/09/20 Range/Units 13:40 Unknown WBC 5.3 (4.5-11.0) X10^3/uL RBC 4.53 (4.0-5.2) X10^6/uL Hgb 14.0 (12.0-16.0) g/dL Hct 41.8 (36-46) % MCV 92.4 (80-100) fL MCH 31.0 (26-34) PG MCHC 33.5 (30-36) % RDW 14.0 (11.6-14.8) % Plt Count 148 L (150-400) X10^3/uL Neut % (Auto) 66.8 (50-75) % Lymph % (Auto) 14.9 L (25-40) % [place] % (Auto) 13.1 (3-14) % Eos % (Auto) 4.4 H (2-4) % Baso % (Auto) 0.8 (0-2) % Neut # (Auto) 3500 (9276-2835) /uL Lymph # (Auto) 800 L (1838-9757) /uL Tarrant # (Auto) 700 (0-900) /uL Eos # (Auto) 200 (0-450) /uL Baso # (Auto) 0 (0-100) /uL PT (10.1-12.7) SECONDS INR (0.9-1.3) APTT (26.4-36.2) SECONDS Sodium (137-145) mmol/L Potassium (3.4-5.1) mmol/L Chloride (98-107) mmol/L Carbon Dioxide (22-32) mmol/L BUN (7-17) mg/dL Creatinine (0.52-1.04) mg/dL Estimated GFR (>60) mL/min BUN/Creatinine Ratio (6-22) Glucose (80-110) mg/dL Calcium (8.4-10.2) mg/dL Total Bilirubin (0.2-1.3) mg/dL AST (14-36) IU/L ALT (<35) IU/L Alkaline Phosphatase (38-126) U/L Total Protein (6.3-8.2) g/dL Albumin (3.5-5.0) g/dL Globulin (1.7-4.1) g/dL Albumin/Globulin Ratio (1.0-2.8) Amylase (30-110) U/L Urine RBC None seen (0-5/HPF) Urine WBC 0-1/hpf (0-5/HPF) Ur Squamous Epith Cells 1-5 /hpf (0-5/HPF) Calcium Oxalate Crystal Many H Amorphous Sediment 2+ Urine Bacteria Few (2-10) H (None) Ur Culture Indicated? Specimen cultured COVID-19 PCR (Negative) Point of care testing: Urine Dip Bedside Urine Glucose Negative Bedside Urine Bilirubin ++ 2 Bedside Urine Ketone - Negative Urine Specific Porter 1.025 Bedside Urine Occult Blood +/- Bedside Urine pH 6.0 Bedside Urine Protein +/- 15 Bedside Urine Urobilinogen 1+ 2mg Bedside Urine Nitrite - Negative Bedside Urine Leukocytes + [address] scan - abdomen/pelvis: Radiologist's Impression: [address] [id number] Scan ReportSigned Patient: Genesis Peter GMR#: [id number]: 7Acct:[id number]/Sex: 75 / FDate of Service: 07/25/20Loc: CTAccession Number: [id number] Procedure: CT abdomen pelvis wo/w con Ordering Provider: Jason Khalil MD PROCEDURE: CT ABDOMEN PELVIS WO/W CON INDICATIONS: Microscopic hematuria TECHNIQUE: Optional 5 mm thick noncontrast images acquired from the diaphragm to the symphysis pubis. After the administration of intravenous contrast, 5 mm thick images acquired from the diaphragm to the symphysis pubis after a 10-minute delay. 2 mm thick coronal and sagittal reformats were then performed of the kidneys and ureters. For radiation dose reduction, the following was used: automated exposure control, adjustment of mA and/or kV according to patient size. COMPARISON: [facility], , US ABDOMEN COMPLETE, 04/13/2020, 10:27. [facility], CT, CT ABDOMEN PELVIS W CON, 06/17/2019, 16:44. FINDINGS: Image quality: Excellent. Lung bases: Lung bases are clear. Heart size is normal. Urinary system: Both kidneys are normal in size without hydronephrosis. There is a punctate calcification within the upper pole of the left kidney which may represent a nonobstructing stone or parenchymal calcification in the setting of prior infarct or infection. Cortical scar is associated with this region. No perinephric fat stranding. There is normal bilateral renal enhancement. 5 mm hyperdense cyst is noted within the midpole of the right kidney. Renal calyces appear normal in morphology when filled with contrast. Opacified portions of both ureters demonstrate normal caliber. The bladder wall is thickened with perivesicular fat stranding noted. The bladder is only partially contrast filled. No calcified bladder stones. The uterus is surgically absent. The ovaries are unremarkable. There is a 1.7 cm in diameter rim calcified right para ovarian cyst or mass. Other solid organs: Liver is normal in size and enhancement. Gallbladder is markedly distended. No discrete gallbladder wall thickening or pericholecystic fluid. No gallstones visualized. There is mild central intrahepatic biliary ductal dilatation. The cystic duct and the common bile duct are moderately dilated. The central portion of the bile duct appears normal in size. No discrete filling defects or stones visualized. The pancreas demonstrates overall normal enhancement; however trace fat stranding is noted at the pancreatic head (series 5/image 79). Spleen is normal in size and enhancement. No adrenal nodules. Peritoneum and bowel: Bowel loops demonstrate normal wall thickness and caliber. The appendix is thin walled and gas filled. There are scattered sigmoid diverticula. No evidence for diverticulitis. No free fluid or air. Nodes and vessels: No retroperitoneal or mesenteric adenopathy by size criteria. Aorta and inferior vena cava are normal in size. There are scattered atheromatous calcifications throughout the aorta and iliac arteries bilaterally. Abdominal wall: No ventral hernias. Pelvis: No pathologic free pelvic fluid. No inguinal adenopathy. There are moderate-sized bilateral fat containing inguinal hernias. Bones: No suspicious bony lesions. No acute vertebral body compression fractures. Wedge compression deformity at L1 is unchanged from 2019. IMPRESSION: 1. No hydronephrosis, hydroureter, or ureterolithiasis. Possible left nonobstructing nephrolithiasis. No bladder calculi. 2. Mild bladder wall thickening and perivesicular fat stranding raising the suspicion for cystitis. Please correlate with symptoms and urinalysis. This may be the etiology of the patient's hematuria. 3. Marked distention of the gallbladder with mild intra and extrahepatic biliary ductal dilatation. Mild fat stranding is also noted at the head of the pancreas which is a new finding when compared with the prior CT of the abdomen dated June 17, 2019. Findings raise the suspicion for mild gallstone pancreatitis or other central obstruction of the biliary tract. Please correlate clinically. If further characterization is warranted, MRCP could be used to evaluate for central obstruction or partially obstructive mass. Dictated by: Angelita Wong M.D. on 07/25/2020 at 13:46 Approved by: Angelita Wong M.D. on 07/25/2020 at 14:10 MRCP: Radiologist's Impression: [address] [id number] Resonance ReportSigned Patient: Genesis Peter GMR#: [id number]: 7Acct:[id number]/Sex: 75 / FDate of Service: 08/08/20Loc: MRIAccession Number: [id number] Procedure: MR abdomen wo con Ordering Provider: Barry Garber MD PROCEDURE: MR ABDOMEN WO CON INDICATIONS: Jaundice, possible obstructing mass TECHNIQUE: Coronal HASTE through the abdomen, axial 2-D FLASH in- and [id number], and breath-hold T2 FSE with fat saturation through the biliary system and pancreas. Oblique coronal and axial thin-slice HASTE, radial thick-slab HASTE centered on the extrahepatic bile ducts. Intravenous secretin: Not requested. COMPARISON: [facility], CT, CT ABDOMEN PELVIS WO/W CON, 07/25/2020, 11:37. FINDINGS: Image quality: Excellent. Pancreas and biliary system: Moderate intrahepatic biliary dilatation, dilated hepatic duct up to 15 mm, distended gallbladder and dilated cystic duct, and abrupt termination of the common bile duct following the cystic duct confluence. The proximal pancreatic duct is mildly dilated at 5 mm in the head. There is a blunting of both the pancreatic duct and common bile duct at the level of the pancreatic head. A discrete mass measuring 1.7 cm is not well seen without contrast, but implied. This corresponds to the area of focal fat stranding in the pancreatic head seen on CT. No discrete filling defects in the ducts are visible. A small amount of material is present dependently in the gallbladder, likely sludge from biliary stasis. Other solid organs: Liver is normal in size. Spleen is normal in size. No adrenal nodules. Both kidneys are normal in size, without hydronephrosis. Nodes and vessels: No retroperitoneal or mesenteric adenopathy by size criteria. Aorta and inferior vena cava are normal in size. Bowel and peritoneum: Unenhanced bowel loops are normal in caliber. No free fluid. Lung bases: No basal pleural effusions. Heart size is normal. Bones and soft tissues: No ventral hernias. Bone marrow is of normal overall signal. IMPRESSION: 1. Moderate intra and extrahepatic biliary obstruction early pancreatic Duct obstruction which appears to be from soft tissue mass measuring less than 2 cm in the pancreatic head. No discrete intraductal filling defects. Alternative etiologies such as focal pancreatitis or ampullary stricture, however malignant neoplasm should be excluded. ERCP is recommended. 2. Probable gallbladder sludge without stones. Dictated by: Gemini Saucedo M.D. on 08/09/2020 at 9:41 Approved by: Gemini Saucedo M.D. on 08/09/2020 at 9:55 MDM Narrative Medical decision making narrative: 75-year-old female comes to the emergency department with complaint of painless jaundice that began approximately 3 weeks ago. She did initially have some pain that has resolved. She has had pasty white stools. Her labs showed elevation which is continuing from the until today she had MRCP yesterday which shows a mass impinging the pancreatic duct with enlargement of multiple intrahepatic ducts, bile duct and pancreatic duct. Patient has been stable in terms of vital signs. Initially contacted her insurance company [employer], there were beds available at [facility] but they do not have the correct service available for ERCP until next week. Spoke with the silica spray mixer on-call at [facility] in [facility], she did confirm that their silica spray mixer who performs ERCPs is available and she asked that we speak to the hospitalist for transfer to [facility]. I spoke with Dr. Chahal the hospitalist who accepts for transfer. Discharge Plan Departure Patient Disposition: [facility] Clinical Impression: Mass of pancreas, Obstruction of pancreatic duct, Jaundice, Elevated liver enzymes Prescriptions: No Action omega-3 fatty acids 1,000 mg capsule 1,000 mg PO DAILY RF: 0 Probiotic 2 cap PO DAILY RF: 0 levothyroxine 88 mcg tablet 88 mcg PO DAILY Qty: 90 RF: 0 (DME) blood-glucose meter Misc See Rx Instructions .ROUTE .MEDSUPPLY Qty: 1 RF: 0 (DME) lancets Misc See Rx Instructions .ROUTE .MEDSUPPLY Qty: 100 RF: 0 pravastatin 40 mg tablet 40 mg PO QPM Qty: 90 RF: 2 (DME) Blood Glucose Test Strip See Rx Instructions .ROUTE .MEDSUPPLY Qty: 100 RF: 3 diazepam [Valium] 5 mg tablet 5 mg PO ONCE PRN (Reason: sedation) Qty: 1 RF: 0 ondansetron HCl [Zofran] 4 mg tablet 4 mg PO Q8H PRN (Reason: nausea and vomiting) Qty: 14 RF: 0 melatonin 5 mg tablet 5 mg PO BEDTIME PRN (Reason: Sleep) RF: 0 ibuprofen 200 mg tablet 600 mg PO Q4-6H PRN (Reason: pain) RF: 0 cholecalciferol (vitamin D3) 3,000 unit tablet 3,000 unit PO DAILY RF: 0 magnesium PO RF: 0 Estradiol 0.0125% Vaginal Cream See Rx Instructions gram vaginal .1-2XW RF: 0 Glucosamine 2 tab PO DAILY RF: 0 Referrals: Apolonia Soto ARNP [Primary Care Provider] -
[2020-08-09 13:23] LABS: INR 1.2 (0.9-1.3); Prothrombin Time 13.6 SECONDS (10.1-12.7)
[2020-08-09 13:25] LABS: PTT Partial Thromboplastin Tim 35 SECONDS (26.4-36.2)
[2020-08-09 13:27] LABS: Albumin 4.2 g/dL (3.5-5.0); Albumin Globulin Ratio 1.3 (1.0-2.8); Alkaline Phosphatase 287 U/L (38-126); Amylase 42 U/L (30-110); Aspartate Aminotransferase 421 IU/L (14-36); BUN Creatinine Ratio 11.7 (6-22); Bilirubin Total 7.6 mg/dL (0.2-1.3); Blood Urea Nitrogen 9 mg/dL (7-17); Calcium 9.5 mg/dL (8.4-10.2); Carbon Dioxide 25 mmol/L (22-32); Chloride 95 mmol/L (98-107); Estimated Glomerular Filt Rate > 60.0 mL/min (>60); Globulin 3.2 g/dL (1.7-4.1); Glucose 158 mg/dL (80-110); HEMOLYSIS < 15 (0-50); Potassium 4.1 mmol/L (3.4-5.1); Sodium 127 mmol/L (137-145); Total Protein 7.4 g/dL (6.3-8.2)
[2020-08-09 13:33] LABS: Alanine Aminotransferase 737 IU/L (<35)
[2020-08-09 13:37] LABS: COVID19 -Nasal RAPID Negative (Negative)
--- NOTE | 2020-08-09 13:58 | PC.NURSE ---
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 pt has been seen at the dr. and had tests done, which are in our system to review.
[2020-08-09 14:04] LABS: RBC Urine None Seen (0-5/HPF)
[2020-08-09 14:13] LABS: Calcium Oxalate Crystals Urine Many; Squamous Epithelial Cell Urine 1-5 /HPF (0-5/HPF); WBC Urine 0-1/HPF (0-5/HPF)
[2020-08-09 14:14] LABS: Amorphous Sediment Urine 2+; Bacteria Urine Few (2-10); Culture Indicated Urine Specimen Cultured
== END 2020-08-09 18:35 | disposition short-term general hospital (02) ==
PROVIDERS: Emergency Provider Emergency Medicine; PCP Nurse Practitioner Family
DX: K86.89 Other specified diseases of pancreas (principal); R74.8 Abnormal levels of other serum enzymes; R17 Unspecified jaundice; R31.29 Other microscopic hematuria; R10.9 Unspecified abdominal pain; E78.5 Hyperlipidemia, unspecified; E03.9 Hypothyroidism, unspecified; E11.9 Type 2 diabetes mellitus without complications; Z20.828 Contact with and (suspected) exposure to other viral communicable diseases
CPT/HCPCS: 36415; 80053; 81003; 81015; 82150; 85025; 85610; 85730; 87086; 87635; 99283

== ENCOUNTER 2020-08-16 15:45 | Emergency (ER) | payer OTHER, SELFPAY ==
[2020-08-16] VITALS (9 sets, daily range): BP systolic 108–136; BP diastolic 61–91; PULSE 69–85; RESP 14–23; TEMP 37.1; O2SAT 98–100
--- NOTE | 2020-08-16 16:34 | PC.NURSE ---
Recent diagnosis of pancreatic mass (biopsy scheduled for Aug 29), ERCP on . Reports right flank pain, worsens with position/palpation. Intermittent nausea/constipation. Black stools with streaks of red.
[2020-08-16 16:37] LABS: Add Manual Diff / Slide Review NO; Basophils Absolute Auto 100 /uL (0-100); Basophils Percent Auto 0.9 % (0-2); Eosinophils Absolute Auto 200 /uL (0-450); Eosinophils Percent Auto 2.9 % (2-4); Hematocrit 37.8 % (36-46); Hemoglobin 12.3 g/dL (12.0-16.0); Lymphocytes Absolute Auto 1500 /uL (1100-4500); Lymphocytes Percent Auto 22.9 % (25-40); Mean Corpuscular HGB Conc 32.6 % (30-36); Mean Corpuscular Hemoglobin 30.4 PG (26-34); Mean Corpuscular Volume 93.3 fL (80-100); Monocytes Absolute Auto 700 /uL (0-900); Monocytes Percent Auto 10.6 % (3-14); Neutrophils Absolute Auto 4000 /uL (1500-7000); Neutrophils Percent Auto 62.7 % (50-75); Platelet Count 198 X10^3/uL (150-400); Red Blood Cell Count 4.05 X10^6/uL (4.0-5.2); Red Cell Distribution Width 13.8 % (11.6-14.8); White Blood Cell Count 6.4 X10^3/uL (4.5-11.0)
[2020-08-16 16:40] LABS: INR 1.1 (0.9-1.3); Prothrombin Time 12.9 SECONDS (10.1-12.7)
[2020-08-16 16:43] LABS: PTT Partial Thromboplastin Tim 33 SECONDS (26.4-36.2)
[2020-08-16 16:51] LABS: Alanine Aminotransferase 206 IU/L (<35); Albumin 4.1 g/dL (3.5-5.0); Albumin Globulin Ratio 1.5 (1.0-2.8); Alkaline Phosphatase 223 U/L (38-126); Aspartate Aminotransferase 72 IU/L (14-36); BUN Creatinine Ratio 14.3 (6-22); Bilirubin Total 1.2 mg/dL (0.2-1.3); Blood Urea Nitrogen 11 mg/dL (7-17); Calcium 9.2 mg/dL (8.4-10.2); Carbon Dioxide 28 mmol/L (22-32); Chloride 99 mmol/L (98-107); Estimated Glomerular Filt Rate > 60.0 mL/min (>60); Globulin 2.8 g/dL (1.7-4.1); Glucose 140 mg/dL (80-110); HEMOLYSIS < 15 (0-50); Lipase 47 U/L (23-300); Potassium 3.9 mmol/L (3.4-5.1); Sodium 133 mmol/L (137-145); Total Protein 6.9 g/dL (6.3-8.2)
--- NOTE | 2020-08-16 16:52 | ED_ITS ---
HPI - Abdominal Pain General Chief Complaint: Abdominal Pain Stated Complaint: states had ERCP, bowels issue, blood in stool Time Seen by Provider: 08/16/20 16:48 Source: patient Mode of arrival: Ambulatory Limitations: no limitations History of Present Illness HPI narrative: Patient is a 75-year-old female who has a history of pancreatic mass with a recent a biliary stent placed at [facility] last week. She says she was released she started having some a right sided pain. Along with dark stool. She denies any fevers chills dizziness or lightheadedness. Her pain is relatively controlled with Tylenol. Related Data Home Medications Medication Instructions Recorded Confirmed omega-3 fatty acids 1,000 mg 1,000 mg PO DAILY 01/05/18 08/06/20 capsule Probiotic 2 cap PO DAILY 03/08/18 08/06/20 Glucosamine 2 tab PO DAILY 12/27/18 08/06/20 ibuprofen 200 mg tablet 600 mg PO Q4-6H PRN tab 01/24/19 08/06/20 melatonin 5 mg tablet 5 mg PO BEDTIME PRN 01/24/19 08/06/20 cholecalciferol (vitamin D3) 75 3,000 unit PO DAILY 06/22/19 08/06/20 mcg (3,000 unit) tablet magnesium PO 10/25/19 08/06/20 Estradiol 0.0125% Vaginal Cream See Rx Instructions VAGINAL .1-2XW 03/22/20 08/06/20 gram Previous Rx's Medication Instructions Recorded levothyroxine 88 mcg tablet 88 mcg PO DAILY #90 tab 05/29/20 blood sugar diagnostic #100 ea 07/30/20 blood-glucose meter #1 ea 07/30/20 lancets #100 ea 07/30/20 pravastatin 40 mg tablet 40 mg PO QPM #90 tab 07/30/20 diazepam 5 mg tablet 5 mg PO ONCE PRN #1 tab 08/08/20 ondansetron HCl 4 mg tablet 4 mg PO Q8H PRN #14 tab 08/16/20 Allergies Allergy/AdvReac Type Severity Reaction Status Date / Time hydrocodone [From VICODIN] Allergy Mild NAUSEA Verified 08/09/20 12:10 ciprofloxacin AdvReac Severe Tendon Verified 08/09/20 12:10 pain, can't walk. Sulfa (Sulfonamide AdvReac Intermediate Diarrhea Verified 08/09/20 12:10 Antibiotics) [SULFA (SULFONAMIDE ANTIBIOTICS)] Review of Systems Review of Systems Narrative: GENERAL: Denies chills, fatigue, malaise, fever, sweats, travel HEENT: Denies sinus pain, ear pain, sore throat, difficulty swallowing, neck pain RESPIRATORY: Denies dyspnea, cough, wheezing, hemoptysis, sputum. CARDIOVASCULAR: Denies chest pain, palpitations, orthopnea, edema GASTROINTESTINAL: See HPI : Denies dysuria, frequency, incontinence, hematuria, urinary retention, flank pain. MUSCULOSKELETAL: Denies weakness, joint pain, or bony pain SKIN: No rash, no erythema, no pruritus NEUROLOGIC: Denies weakness, dizziness, headache, numbness, change in speech, confusion PSYCHIATRIC: No concerning psychosocial issues. 12 point review of systems is negative except for those stated above and HPI Patient History Medical History Abdominal bloating Abnormal CT of the abdomen Arthritis Bowel habit changes Cataract (~01/2011) Colon polyps (Unknown) Diverticulitis Diverticulosis [place] Hematuria Hematuria Hemorrhoids History of recurrent UTI (urinary tract infection) Hyperlipidemia (~01/2011) Hyponatremia Hypothyroidism (~01/2011) Left hip pain (07/2019) Mild obstructive sleep apnea (~01/2017) Postmenopausal atrophic vaginitis Thyroid disease Type 2 diabetes mellitus Surgical History H/O breast biopsy History of knee replacement Status post hernia repair Status post hysterectomy Family History Sister History of breast cancer Sister Type 1 diabetes mellitus without complications OCD (obsessive compulsive disorder) Social History Smoking Status: Never smoker second hand exposure: No alcohol intake: never substance use type: does not use Smoking Status: Never smoker alcohol intake frequency: holidays/special occasions only Substance Use Type: does not use Exam Initial Vital Signs Initial Vital Signs: Vital Signs Temperature 98.7 F 08/16/20 16:00 Pulse Rate 85 08/16/20 16:00 Respiratory Rate 16 08/16/20 16:00 Blood Pressure 108/80 08/16/20 16:00 Pulse Oximetry 100 08/16/20 16:00 GENERAL: Well-appearing 75-year-old female, no significant jaundice at this time HEENT: Head atraumatic,EOMI, pupils reactive, face symmetric, moist mucous membranes CARDIOVASCULAR: Regular rate and rhythm without murmurs, rubs or gallops. RESPIRATORY: Breath sounds equal bilaterally, no wheezes rales or rhonchi. ABDOMEN: Soft, nontender. Normoactive bowel sounds all 4 quadrants. No guarding or rebound. RECTAL: No stool EXTREMITIES: Normal range of motion, no clubbing or edema. Neurovascularly intact NEUROLOGICAL: Alert and oriented x4.Normal gait and speech. SKIN: Warm, dry, no laceration, no petechiae, no rashes or lesions. Course Orders Ordered: ED Orders 08/16/20 16:03 EKG-12 Lead Stat 08/16/20 16:25 Complete Blood Count AUTO DIFF Stat Comprehensive Metabolic Panel Stat Lipase Stat Partial Thromboplastin Time Stat Prothrombin Time INR Stat 08/16/20 17:04 CT abdomen pelvis w con Stat Vital Signs Vital signs: Vital Signs - 8 hr 08/16/20 16:00 08/16/20 16:30 08/16/20 16:31 Temperature 98.7 F Pulse Rate 85 73 69 Respiratory Rate 16 14 14 Blood Pressure 108/80 133/91 H Pulse Oximetry 100 98 98 08/16/20 17:01 08/16/20 17:02 08/16/20 17:30 Temperature Pulse Rate 78 72 73 Respiratory Rate 23 17 15 Blood Pressure 129/65 Pulse Oximetry 100 99 08/16/20 18:00 08/16/20 18:30 08/16/20 18:43 Temperature Pulse Rate 70 73 70 Respiratory Rate 18 17 14 Blood Pressure 136/61 Pulse Oximetry 98 99 MDM - Abdominal Pain Lab Data Result diagrams: 08/16/20 16:25 08/16/20 16:25 Labs: Lab Results 08/16/20 08/16/20 08/16/20 Range/Units 16:25 16:25 16:25 WBC 6.4 (4.5-11.0) X10^3/uL RBC 4.05 (4.0-5.2) X10^6/uL Hgb 12.3 (12.0-16.0) g/dL Hct 37.8 (36-46) % MCV 93.3 (80-100) fL MCH 30.4 (26-34) PG MCHC 32.6 (30-36) % RDW 13.8 (11.6-14.8) % Plt Count 198 (150-400) X10^3/uL Neut % (Auto) 62.7 (50-75) % Lymph % (Auto) 22.9 L (25-40) % Drew % (Auto) 10.6 (3-14) % Eos % (Auto) 2.9 (2-4) % Baso % (Auto) 0.9 (0-2) % Neut # (Auto) 4000 (1444-0185) /uL Lymph # (Auto) 1500 (4097-6502) /uL Drew # (Auto) 700 (0-900) /uL Eos # (Auto) 200 (0-450) /uL Baso # (Auto) 100 (0-100) /uL PT 12.9 H (10.1-12.7) SECONDS INR 1.1 (0.9-1.3) APTT 33 (26.4-36.2) SECONDS Sodium 133 L (137-145) mmol/L Potassium 3.9 (3.4-5.1) mmol/L Chloride 99 (98-107) mmol/L Carbon Dioxide 28 (22-32) mmol/L BUN 11 (7-17) mg/dL Creatinine 0.77 (0.52-1.04) mg/dL Estimated GFR > 60.0 (>60) mL/min BUN/Creatinine Ratio 14.3 (6-22) Glucose 140 H (80-110) mg/dL Calcium 9.2 (8.4-10.2) mg/dL Total Bilirubin 1.2 (0.2-1.3) mg/dL AST 72 H (14-36) IU/L ALT 206 H (<35) IU/L Alkaline Phosphatase 223 H (38-126) U/L Total Protein 6.9 (6.3-8.2) g/dL Albumin 4.1 (3.5-5.0) g/dL Globulin 2.8 (1.7-4.1) g/dL Albumin/Globulin Ratio 1.5 (1.0-2.8) Lipase 47 (23-300) U/L Point of care testing: Urine Dip Bedside Urine Glucose Negative Bedside Urine Bilirubin - Negative Bedside Urine Ketone - Negative Urine Specific Locke 1.010 Bedside Urine Occult Blood - Negative Bedside Urine pH 6.0 Bedside Urine Protein - Negative Bedside Urine Urobilinogen - Negative Bedside Urine Nitrite - Negative Bedside Urine Leukocytes - Negative Esterase Imaging Data CT scan - abdomen/pelvis: Radiologist's Impression: PROCEDURE: CT ABDOMEN PELVIS W CON INDICATIONS: ab pain after ERCP TECHNIQUE: After the administration of intravenous contrast, 5 mm thick sections acquired from the diaphragm to the symphysis. 5 mm coronal and sagittal reformats were acquired. For radiation dose reduction, the following was used: automated exposure control, adjustment of mA and/or kV according to patient size. COMPARISON: [facility], CT, CT ABDOMEN PELVIS WO/W CON, 07/25/2020, 11:37. [facility], CT, CT ABDOMEN PELVIS W CON, 06/17/2019, 16:44. [facility], MR, MR ABDOMEN WO CON, 08/08/2020, 19:45. FINDINGS: Image quality: Excellent. ABDOMEN: Lung bases: Bibasilar dependent atelectasis is seen. Heart size is normal. Solid organs: Liver is normal in size and enhancement. Gallbladder is markedly distended not significantly changed from previous studies. No calcified gallstone is seen were significant gallbladder wall thickening. Again noted is diffuse intrahepatic biliary ductal dilatation and dilatation of common bile duct with interval placement of a biliary stent extending from distal common bile duct to distal duodenum. Mild prominence of pancreatic duct is again seen with suggestion of small of soft tissue mass in the region of pancreatic head near the stent. No peripancreatic fat stranding or fluid collection is seen. Spleen is normal in size and enhancement. No adrenal nodules. Kidneys demonstrate normal size and enhancement, without hydronephrosis. Peritoneum and bowel: Bowel loops demonstrate normal wall thickness and caliber. No free fluid or air. Colonic diverticulosis is again seen, no CT evidence of acute diverticulitis. Nodes and vessels: No retroperitoneal or mesenteric adenopathy by size criteria. Aorta and inferior vena cava are normal in size. Miscellaneous: No ventral hernias. PELVIS: Genitourinary: Urinary bladder is partially distended and shows no gross abnormality. Miscellaneous: No inguinal hernias or adenopathy. Bones: No suspicious bony lesions. No vertebral body compression fractures. Anterior wedge compression deformity at L1 level is again seen unchanged from 07/25/2020 study. Grow grade 1 anterolisthesis of L4 on L5 is again seen and unchanged. IMPRESSION: 1. Patient is status post interval biliary stent placement. Persistent intrahepatic biliary ductal dilatation and common bile duct dilatation not significantly changed from prior studies. Persistent dilatation of pancreatic duct with suggestion of possible pancreatic head mass. 2. Markedly distended gallbladder unchanged from previous study. No gross gallbladder wall thickening or calcified gallstone. 3. No peritoneal free fluid or free air. No bowel obstruction. Sigmoid diverticulosis without evidence of acute diverticulitis. Dictated by: Dimitry Moore M.D. on 08/16/2020 at 17:35 ECG Data Attestation: I personally reviewed and interpreted this ECG as follows: Prior ECG tracings: not available for review Interpretation: Normal sinus rhythm rate 67 year interval 166 you are S [address] changes MDM Narrative Medical decision making narrative: Patient has very minimal pain not requiring any medication in the ED. Blood work is overall reassuring bilirubin is significantly improved. CT does not show any complication from the procedure. 185 Dr. Crow, GI has been updated patient's symptoms and test results at this time can follow up outpatient likely having some discomfort from the stent and mass. I have updated patient on recommendations from eye which is very little. I recommend she see her PCP if she should need for pain control. Discharge Plan Departure Patient Disposition: Home Clinical Impression: Postoperative abdominal pain Instructions: Pancreatic Cancer Activity Restrictions/Additional Instructions: *You have been diagnosed with postoperative abdominal pain *What to do: Your pain is likely related to the pancreatic mass and distended. Her hopefully it does not worsen but if it does please talk to your doctor about pain management *Continue to take medications as directed Tylenol 650 mg every 4-6 hours if needed for [id number] pain *Follow up with your primary care provider in 2-3 days *Return to ER if you should have increasing pain, nausea, weakness or any new, worsening or concerning symptoms Prescriptions: No Action omega-3 fatty acids 1,000 mg capsule 1,000 mg PO DAILY RF: 0 Probiotic 2 cap PO DAILY RF: 0 levothyroxine 88 mcg tablet 88 mcg PO DAILY Qty: 90 RF: 0 (DME) blood-glucose meter Misc See Rx Instructions .ROUTE .MEDSUPPLY Qty: 1 RF: 0 (DME) lancets Misc See Rx Instructions .ROUTE .MEDSUPPLY Qty: 100 RF: 0 pravastatin 40 mg tablet 40 mg PO QPM Qty: 90 RF: 2 (DME) Blood Glucose Test Strip See Rx Instructions .ROUTE .MEDSUPPLY Qty: 100 RF: 3 diazepam [Valium] 5 mg tablet 5 mg PO ONCE PRN (Reason: sedation) Qty: 1 RF: 0 ondansetron HCl [Zofran] 4 mg tablet 4 mg PO Q8H PRN (Reason: nausea and vomiting) Qty: 14 RF: 0 melatonin 5 mg tablet 5 mg PO BEDTIME PRN (Reason: Sleep) RF: 0 ibuprofen 200 mg tablet 600 mg PO Q4-6H PRN (Reason: pain) RF: 0 cholecalciferol (vitamin D3) 3,000 unit tablet 3,000 unit PO DAILY RF: 0 magnesium PO RF: 0 Estradiol 0.0125% Vaginal Cream See Rx Instructions gram vaginal .1-2XW RF: 0 Glucosamine 2 tab PO DAILY RF: 0 Referrals: Apolonia oSto ARNP [Primary Care Provider] -
--- NOTE | 2020-08-16 17:04 | DI.CT.S_ITS ---
PROCEDURE: CT ABDOMEN PELVIS W CON INDICATIONS: ab pain after ERCP TECHNIQUE: After the administration of intravenous contrast, 5 mm thick sections acquired from the diaphragm to the symphysis. 5 mm coronal and sagittal reformats were acquired. For radiation dose reduction, the following was used: automated exposure control, adjustment of mA and/or kV according to patient size. COMPARISON: [facility], CT, CT ABDOMEN PELVIS WO/W CON, 07/25/2020, 11:37. [facility], CT, CT ABDOMEN PELVIS W CON, 06/17/2019, 16:44. [facility], MR, MR ABDOMEN WO CON, 08/08/2020, 19:45. FINDINGS: Image quality: Excellent. ABDOMEN: Lung bases: Bibasilar dependent atelectasis is seen. Heart size is normal. Solid organs: Liver is normal in size and enhancement. Gallbladder is markedly distended not significantly changed from previous studies. No calcified gallstone is seen were significant gallbladder wall thickening. Again noted is diffuse intrahepatic biliary ductal dilatation and dilatation of common bile duct with interval placement of a biliary stent extending from distal common bile duct to distal duodenum. Mild prominence of pancreatic duct is again seen with suggestion of small of soft tissue mass in the region of pancreatic head near the stent. No peripancreatic fat stranding or fluid collection is seen. Spleen is normal in size and enhancement. No adrenal nodules. Kidneys demonstrate normal size and enhancement, without hydronephrosis. Peritoneum and bowel: Bowel loops demonstrate normal wall thickness and caliber. No free fluid or air. Colonic diverticulosis is again seen, no CT evidence of acute diverticulitis. Nodes and vessels: No retroperitoneal or mesenteric adenopathy by size criteria. Aorta and inferior vena cava are normal in size. Miscellaneous: No ventral hernias. PELVIS: Genitourinary: Urinary bladder is partially distended and shows no gross abnormality. Miscellaneous: No inguinal hernias or adenopathy. Bones: No suspicious bony lesions. No vertebral body compression fractures. Anterior wedge compression deformity at L1 level is again seen unchanged from 07/25/2020 study. Grow grade 1 anterolisthesis of L4 on L5 is again seen and unchanged. IMPRESSION: 1. Patient is status post interval biliary stent placement. Persistent intrahepatic biliary ductal dilatation and common bile duct dilatation not significantly changed from prior studies. Persistent dilatation of pancreatic duct with suggestion of possible pancreatic head mass. 2. Markedly distended gallbladder unchanged from previous study. No gross gallbladder wall thickening or calcified gallstone. 3. No peritoneal free fluid or free air. No bowel obstruction. Sigmoid diverticulosis without evidence of acute diverticulitis. Dictated by: Dimitry Moore M.D. on 08/16/2020 at 17:35 Approved by: Dimitry Moore M.D. on 08/16/2020 at 17:40
== END 2020-08-16 19:21 | disposition home or self-care (01) ==
PROVIDERS: Emergency Provider Emergency Medicine; PCP Nurse Practitioner Family
DX: G89.18 Other acute postprocedural pain (principal); R10.9 Unspecified abdominal pain
CPT/HCPCS: 36415; 74177; 80053; 81003; 83690; 85025; 85610; 85730; 93005; 99284; Q9967

== ENCOUNTER → 2020-09-13 16:09 | Outpatient (CLI) | payer OTHER, SELFPAY ==
[2020-09-14 07:22] LABS: Hepatitis B Core AB w/Reflex Negative (Negative)
[2020-09-14 08:08] LABS: Hepatitis B Surf AB Quant <3.1 mIU/mL (Immunity>9.9)
== END ==
PROVIDERS: PCP Family Medicine; Referring Provider Internal Medicine; Visit Provider Internal Medicine
DX: C25.9 Malignant neoplasm of pancreas, unspecified (principal)
CPT/HCPCS: 36415; 86704; 86706

== ENCOUNTER → 2020-10-03 09:46 | Outpatient (CLI) | payer OTHER, SELFPAY ==
[2020-10-03 10:51] LABS: Hematocrit 41.4 % (36-46); Hemoglobin 13.7 g/dL (12.0-16.0); Mean Corpuscular HGB Conc 33.1 % (30-36); Mean Corpuscular Hemoglobin 30.4 PG (26-34); Mean Corpuscular Volume 91.7 fL (80-100); Platelet Count 201 X10^3/uL (150-400); Red Blood Cell Count 4.52 X10^6/uL (4.0-5.2); White Blood Cell Count 11.4 X10^3/uL (4.5-11.0)
[2020-10-03 10:57] LABS: Add Manual Diff / Slide Review YES
[2020-10-03 11:22] LABS: Neutrophils Absolute Manual 8892 /uL (3000-5900); Total Cells Counted 100
[2020-10-03 11:30] LABS: Dohle Bodies 1+
== END ==
PROVIDERS: PCP Family Medicine; Referring Provider Internal Medicine; Visit Provider Internal Medicine
DX: C25.9 Malignant neoplasm of pancreas, unspecified (principal)
CPT/HCPCS: 36415; 85007; 85025

== ENCOUNTER → 2020-10-16 15:20 | Outpatient (CLI) | payer OTHER, SELFPAY ==
[2020-10-16 17:41] LABS: Add Manual Diff / Slide Review NO; Basophils Absolute Auto 0 /uL (0-100); Basophils Percent Auto 0.4 % (0-2); Eosinophils Absolute Auto 100 /uL (0-450); Eosinophils Percent Auto 2.1 % (2-4); Hematocrit 40.7 % (36-46); Hemoglobin 13.9 g/dL (12.0-16.0); Lymphocytes Absolute Auto 900 /uL (1100-4500); Lymphocytes Percent Auto 16.4 % (25-40); Mean Corpuscular HGB Conc 34.1 % (30-36); Mean Corpuscular Hemoglobin 31.4 PG (26-34); Monocytes Absolute Auto 200 /uL (0-900); Monocytes Percent Auto 4.2 % (3-14); Neutrophils Absolute Auto 4400 /uL (1500-7000); Neutrophils Percent Auto 76.9 % (50-75); Platelet Count 97 X10^3/uL (150-400); Red Blood Cell Count 4.42 X10^6/uL (4.0-5.2); Red Cell Distribution Width 13.6 % (11.6-14.8); White Blood Cell Count 5.7 X10^3/uL (4.5-11.0)
== END ==
PROVIDERS: PCP Family Medicine; Referring Provider Internal Medicine; Visit Provider Internal Medicine
DX: C25.9 Malignant neoplasm of pancreas, unspecified (principal)
CPT/HCPCS: 36415; 85025

== ENCOUNTER → 2020-11-27 11:19 | Outpatient (CLI) | payer MEDICARE, SELFPAY ==
[2020-11-27] MEDS: COVID-19 VACC #1, MRNA(MOD) 100 MCG/0.5 ML VIAL IM (11:27)
== END ==
PROVIDERS: PCP Family Medicine; Visit Provider Internal Medicine
DX: Z23 Encounter for immunization (principal)
CPT/HCPCS: 0011A; 91301

== ENCOUNTER → 2020-11-29 13:38 | Outpatient (CLI) | payer OTHER, SELFPAY ==
[2020-11-29 14:44] LABS: Alanine Aminotransferase 47 IU/L (<35); Albumin 3.3 g/dL (3.5-5.0); Albumin Globulin Ratio 1.3 (1.0-2.8); Alkaline Phosphatase 294 U/L (38-126); Aspartate Aminotransferase 41 IU/L (14-36); BUN Creatinine Ratio 8.5 (6-22); Bilirubin Total 0.4 mg/dL (0.2-1.3); Blood Urea Nitrogen 6 mg/dL (7-17); Calcium 9.2 mg/dL (8.4-10.2); Carbon Dioxide 26 mmol/L (22-32); Chloride 100 mmol/L (98-107); Estimated Glomerular Filt Rate > 60.0 mL/min (>60); Globulin 2.5 g/dL (1.7-4.1); Glucose 152 mg/dL (80-110); HEMOLYSIS < 15 (0-50); Potassium 4.7 mmol/L (3.4-5.1); Sodium 134 mmol/L (137-145); Total Protein 5.8 g/dL (6.3-8.2)
[2020-11-29 14:47] LABS: Hemoglobin A1C% w Est Avg Glu 7.4 % (4.0-6.0)
== END ==
PROVIDERS: PCP Family Medicine; Referring Provider Family Medicine; Visit Provider Family Medicine
DX: E11.9 Type 2 diabetes mellitus without complications (principal); E78.5 Hyperlipidemia, unspecified
CPT/HCPCS: 36415; 80053; 83036

== ENCOUNTER → 2020-12-26 11:08 | Outpatient (CLI) | payer MEDICARE, SELFPAY ==
[2020-12-26] MEDS: COVID-19 VACC #2, MRNA(MOD) 100 MCG/0.5 ML VIAL IM (11:15)
== END ==
PROVIDERS: PCP Family Medicine; Visit Provider Internal Medicine
DX: Z23 Encounter for immunization (principal)
CPT/HCPCS: 0012A; 91301

== ENCOUNTER → 2021-01-28 08:10 | Outpatient (CLI) | payer OTHER, SELFPAY ==
[2021-01-28 08:47] LABS: Add Manual Diff / Slide Review NO; Basophils Absolute Auto 100 /uL (0-100); Eosinophils Absolute Auto 300 /uL (0-450); Eosinophils Percent Auto 5.6 % (2-4); Hematocrit 41.7 % (36-46); Hemoglobin 13.9 g/dL (12.0-16.0); Lymphocytes Absolute Auto 1300 /uL (1100-4500); Lymphocytes Percent Auto 24.3 % (25-40); Mean Corpuscular HGB Conc 33.3 % (30-36); Mean Corpuscular Hemoglobin 32.7 PG (26-34); Mean Corpuscular Volume 98.1 fL (80-100); Monocytes Absolute Auto 500 /uL (0-900); Monocytes Percent Auto 8.9 % (3-14); Neutrophils Absolute Auto 3200 /uL (1500-7000); Neutrophils Percent Auto 60.2 % (50-75); Platelet Count 151 X10^3/uL (150-400); Red Blood Cell Count 4.25 X10^6/uL (4.0-5.2); Red Cell Distribution Width 14.2 % (11.6-14.8); White Blood Cell Count 5.3 X10^3/uL (4.5-11.0)
[2021-01-28 08:59] LABS: Alanine Aminotransferase 13 IU/L (<35); Albumin 3.9 g/dL (3.5-5.0); Albumin Globulin Ratio 1.3 (1.0-2.8); Alkaline Phosphatase 95 U/L (38-126); Aspartate Aminotransferase 23 IU/L (14-36); BUN Creatinine Ratio 11.8 (6-22); Bilirubin Total 0.4 mg/dL (0.2-1.3); Blood Urea Nitrogen 10 mg/dL (7-17); Calcium 9.5 mg/dL (8.4-10.2); Carbon Dioxide 28 mmol/L (22-32); Chloride 102 mmol/L (98-107); Estimated Glomerular Filt Rate > 60.0 mL/min (>60); Globulin 3.1 g/dL (1.7-4.1); Glucose 117 mg/dL (80-110); HEMOLYSIS < 15 (0-50); Potassium 4.1 mmol/L (3.4-5.1); Sodium 136 mmol/L (137-145)
[2021-01-29 02:46] LABS: Cancer (Carbohydrate) Ag 19-9 299 U/mL (0-35)
== END ==
PROVIDERS: PCP Family Medicine; Referring Provider Family Medicine; Visit Provider Family Medicine
DX: Z01.812 Encounter for preprocedural laboratory examination (principal); C25.9 Malignant neoplasm of pancreas, unspecified; E11.9 Type 2 diabetes mellitus without complications; E03.9 Hypothyroidism, unspecified; E78.5 Hyperlipidemia, unspecified
CPT/HCPCS: 36415; 80053; 85025; 86301

== ENCOUNTER → 2021-01-29 12:24 | Outpatient (CLI) | payer OTHER, SELFPAY ==
--- NOTE | 2021-01-29 12:49 | DI.CT.S_ITS ---
PROCEDURE: CT CHEST ABD PEL W CON INDICATIONS: restaging pancreatic cancer. pancreas protocol multiphase CT TECHNIQUE: After the administration of intravenous contrast, axial sections were obtained through the abdomen during the pancreatic parenchymal phase followed by axial sections acquired from the supraclavicular neck to the pubic symphysis during the portal venous phase. Coronal and sagittal reformats were performed. For radiation dose reduction, the following was used: automated exposure control, adjustment of mA and/or kV according to patient size. COMPARISON:[facility], , MR ABDOMEN WO CON, 08/08/2020, 19:45. [facility], RG, CT ABDOMEN W/WO CONTRAST, 11/14/2020, 9:12. [facility], , CT ABDOMEN/PELVIS WITH CONTRAST, 11/20/2020, 14:06. FINDINGS: Image quality: Excellent. CHEST: Lower Neck: No enlarged lymph nodes. Thyroid: There is a small enhancing nodule in the region of the left thyroid bed measuring up to 0.8 x 0.8 cm in transverse dimension. Axillae: No enlarged lymph nodes. Chest Wall: There is a left subclavian Port-A-Cath with the tip extending to the cavoatrial junction. Lungs and Airways: Mild dependent atelectasis demonstrated bilaterally. No consolidation or suspicious nodules. Pleura: There is a small right pleural effusion with right basilar atelectasis. Heart: Heart size is normal. No pericardial effusion. Thoracic Vessels: The aorta and pulmonary arteries demonstrate normal size. 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 Mediastinum and Sammie: No enlarged lymph nodes. Esophagus: There is mild concentric wall thickening in the distal esophagus. No hiatal hernia. ABDOMEN: Liver: There is pneumobilia demonstrated within the liver. No discrete hepatic mass identified. Gallbladder: There is pneumobilia within the gallbladder. No calcified gallstones or wall thickening. Biliary ducts: There is persistent intra and extrahepatic biliary ductal dilatation, decreased from the prior study with a biliary stent present. Increased pneumobilia is demonstrated. Pancreas: An ill-defined hypoenhancing mass centered in the pancreatic head demonstrates interval increase in size, measuring approximately 4.8 x 3.0 x 5.8 cm in dimension on axial series 2, image 42 and coronal series 5, image 20. The mass demonstrates encasement of the common bile duct stent. There is also encasement of the portal splenic confluence with severe narrowing of the superior mesenteric vein. There is encasement of small branches of the hepatic artery. The mass demonstrates apparent invasion the descending portion of the duodenum. There is progressive increased dilatation of the pancreatic duct within the body and tail, measuring up to 0.7 cm, with associated increased distal pancreatic atrophy. Spleen: Normal in size. Adrenal Glands: Unremarkable. Kidneys and Ureters: No hydronephrosis.. Stomach and Bowel: As noted above, there is suspected invasion of the descending portion of the duodenum by the pancreatic mass. Remaining visualized small bowel loops demonstrate normal caliber and wall thickness. There is wall thickening of the distal transverse , descending, and sigmoid colon compatible with a nonspecific colitis. Peritoneum: No abnormal intraperitoneal fluid. No free air. Ventral Wall: No hernia. Abdominal Nodes: There are few prominent peripancreatic nodes measuring up to 0.8 cm on series 2, image 31. No retroperitoneal adenopathy by size criteria. Vessels: Aorta and inferior vena cava are normal in size. PELVIS: Pelvic Organs: Unremarkable. Bladder: Unremarkable. Pelvic Nodes: No enlarged lymph nodes. Miscellaneous: No inguinal hernias are seen. Bones: There is a mild superior endplate compression fracture of the L1 vertebral body which appears unchanged. IMPRESSION: 1. Progressive interval increase in size of an ill-defined hypoattenuating mass in the pancreatic head consistent with pancreatic adenocarcinoma. Encasement and marked narrowing of the superior mesenteric vein demonstrated at the portal splenic confluence as well as apparent invasion of the descending portion of the duodenum. 2. Progressive increased atrophy and pancreatic duct dilatation within the pancreatic body and tail. 3. Prominent peripancreatic lymph nodes appear similar to the prior study. 4. Biliary stents redemonstrated with slight interval decreased biliary ductal dilatation. There is increased pneumobilia. 5. Segmental wall thickening within the distal colon compatible with a nonspecific colitis. Dictated by: Florin Cantu M.D. on 01/29/2021 at 17:08 Approved by: Florin Cantu M.D. on 01/29/2021 at 17:25
== END ==
PROVIDERS: PCP Family Medicine; Referring Provider Family Medicine; Visit Provider Family Medicine
DX: C25.0 Malignant neoplasm of head of pancreas (principal); K86.89 Other specified diseases of pancreas; R59.0 Localized enlarged lymph nodes
CPT/HCPCS: 71260; 74177; Q9967